=== PATIENT | female | born 1955 | race Caucasian/White ===

== ENCOUNTER 2019-06-27 19:57 | Inpatient (IN) | payer OTHER, MEDICARE, SELFPAY ==
[2019-06-27] VITALS (11 sets, daily range): BP systolic 105–160; BP diastolic 70–109; PULSE 58–79; RESP 8–18; TEMP 36.1–36.7; O2SAT 99–100; BMI 29.9; BMI 30.5; BMI 30.6
--- NOTE | 2019-06-27 20:05 | ED.RN ---
RN CALLED FOR EKG, PULLED OLD EKGS FOR
[2019-06-27] MEDS: Aspirin 81 MG TAB.CHEW 324 MG PO (20:07)
--- NOTE | 2019-06-27 20:09 | EKG12_ITS ---
Test Reason : CP Blood Pressure : / mmHG Vent. Rate : 062 BPM Atrial Rate : 062 BPM P-R Int : 160 ms QRS Dur : 090 ms QT Int : 406 ms P-R-T Axes : 017 -14 075 degrees QTc Int : 412 ms Normal sinus rhythm ST elevation consider inferior injury or acute infarct ACUTE IN / STEMI Consider right ventricular involvement in acute inferior infarct Abnormal ECG Confirmed by JAZLYN HOYT, DIANNA ([id number]), research editor LUIZ POSADAS ([id number]) on 06/29/2019 2:16:07 PM Referred By: Erasto Vuong Confirmed By:DIANNA HOBSON MD
--- NOTE | 2019-06-27 20:09 | RAD_ITS ---
STUDY: X-RAY CHEST REASON FOR EXAM: Female, 63 years old. Chest pain, STEMI TECHNIQUE: Portable chest. COMPARISON: None. FINDINGS: The lungs are clear and expanded. There is no demonstrated pleural abnormality. Normal size heart. Normal mediastinum and mary carmen. Normal visualized pulmonary arteries. Normal visualized aortic arch and descending thoracic aorta. Mild thoracic dextroscoliosis. Soft tissues and bony structures are otherwise unremarkable. RAD/Chest 1 View (Portable) IMPRESSION: No acute findings. Electronically Signed: Lynda Hugo MD at 20:41 EST Tel , Service support ,
[2019-06-27] MEDS: Heparin Injection (Vial) 5,000 UNIT/ML VIAL 4000 UNIT IV (20:14)
--- NOTE | 2019-06-27 20:16 | ED.VISSUMM ---
- ER Visit Summary Date of Service: 06/27/19 Chief Complaint: Pain History of Present Illness: The patient is a 63 F with chest pain that started about 45 minutes prior to arrival. It was midsternal and radiated down both arms. She never had this before. This came on while she was driving. She said she has been having increasing GERD recently, but no other associated symptoms. No history of coronary disease. She denies any medical history but does not see a doctor regularly. Non-smoker. Physical Examination: Afebrile and vital signs unremarkable. Patient appears uncomfortable but not toxic or in distress. Alert and oriented. Heart regular. Lungs clear. Skin unremarkable. Pulses strong and equal. Test Results: EKG shows elevation in inferior leads. This has changed since 2014. Other testing is pending. Emergency Department Course and Treatment: EKG showed ST elevation AR. Team was activated. Patient was discussed with Dr. Vuong. Treated with aspirin, Brilinta, heparin. No nitroglycerin. She received a fluid bolus. Second IV was ordered. Testing is pending. Patient was consented for cardiac catheterization. Hospitalist was contacted to help with further care. Treatment Plan: As above Disposition: To Mold Tooling Technician and then ICU Impression: 1. Acute ST elevation AR, inferior leads This note was generated with [employer] dictation software. It may contain incorrect words, spelling, and punctuation that were not noted in review of the chart prior to signing ED Disposition - Plan for ED Patient: Referrals: Aftab Hillman MD [Primary Care Provider] -
[2019-06-27 20:17] LABS: Absolute Lymphocyte Count 5.32 X10^3/uL (0.83-4.51); Absolute Neutrophil Count 5.9 X10^3/uL (2.0-7.7); Basophil# 0.11 X10^3/uL; Basophil% 0.9 % (0-1); Eosinophils% 1.6 % (0-5); Hematocrit 42.9 % (37-47); Hemoglobin 13.7 g/dL (12.0-15.0); Lymphocyte # 5.32 X10^3/ul (4.0); Lymphocyte % 41.6 % (19-41); Mean Corp Hgb Conc 31.9 g/dL (32-36); Mean Corpuscular Hgb 26.8 pg (27.0-32.0); Mean Corpuscular Volume 83.8 fL (81-99); Mean Platelet Vol. 9.4 fl (6.2-12.0); Monocyte# 1.18 X10^3/uL; Monocyte% 9.2 % (0-10); NRBC Flagged by Analyzer 0 % (0-5); Neutrophil # 5.94 X10^3/uL (2.7-7.7); Neutrophil % 46.5 % (47-70); POSITIVE DIFFERENTIAL YES; Platelet Count 356 K/mm3 (150-450); RBC Distribution Width CV 14.1 % (11.6-14.6); RBC Distribution Width SD 43.3 fl (35.1-43.9); Red Blood Count 5.12 M/mm3 (4.2-5.4); White Blood Count 12.8 K/mm3 (4.4-11.0)
[2019-06-27] MEDS: TICAGRELOR 90 MG TABLET 180 MG PO (20:17)
[2019-06-27] MEDS: Morphine 4 MG/ML Syringe IV ×2 (20:18→22:40)
[2019-06-27] MEDS: Ondansetron 4 MG/2 ML Vial IV (20:18)
[2019-06-27] MEDS: 0.9% Normal Saline 1,000 ML 999 ML IV (20:23)
[2019-06-27 20:24] LABS: International Normalized Ratio 0.9; Prothrombin Time (Protime)PT. 12.4 SECONDS (11.7-14.9)
[2019-06-27 20:25] LABS: Differential Indicated SCAN CRITERIA MET; Partial Thromboplast Time 22.9 Seconds (24.1-36.2)
[2019-06-27 20:34] LABS: Anion Gap 7 (5-15); BUN 17 mg/dL (7-18); BUN/Creat Ratio 16.5 RATIO (10-20); Calcium,Total 9.1 mg/dL (8.5-10.1); Chloride 107 mmol/L (98-107); Creatinine, Serum 1.03 mg/dL (0.55-1.02); EST Glomerular Filtration Rate 57 mL/min (>60); Est Glom Filt Rate - Afr Amer 69 mL/min (>60); Estimated Creatinine Clearance 50.98 ml/min; Glucose 111 mg/dL (74-106); Potassium 3.4 mmol/L (3.5-5.1); Sodium Level 140 mmol/L (136-145)
--- NOTE | 2019-06-27 20:39 | HP.PCM_ITS ---
Problem List (1) STEMI (ST elevation myocardial infarction) Status: Acute History of Present Illness Date of Admission: 06/27/19 Chief Complaint: CHEST PAIN The patient is a 63 year old F who previously had a female who presented with substernal excruciating sudden onset sharp progressively worsening chest pain. The pain started when patient was driving. The pain started about 45 minutes prior to presentation. She denies any ameliorating or aggravating factors. The pain radiates to her bilateral arms. She denies any shortness of breath or diaphoresis. EKG at the emergency department showed inferior leads ST elevation NC. Emergent department doctor discussed the case with cardiology and patient received full dose aspirin; Brilinta; heparin bolus and IV fluid bolus. Past Medical History Medical History: Medical History (This Medical Record has been edited. Action required.) Denies any previous medical history Allergies No Known Allergies Allergy (Verified 06/27/19 19:58) Home Medications: Ambulatory Orders Medication Instructions Recorded NK 06/27/19 Surgical History: cholecystectomy Lives: With Family Smoking Status: Never smoker Alcohol: Occasional - *Family History Maternal History Items: Hypertension Paternal History Items: Hypertension Review of Systems Constitutional: Denies: Chills, Fever, Weight Change HEENT: Denies: Head Aches, Sinus Congestion, Sinus Drainage Cardiovascular: Reports: Chest Pain. Denies: Palpitations Respiratory: Denies: Cough, Shortness of breath at rest, Sputum production Gastrointestinal: Denies: Abdominal Pain, Nausea, Vomiting Genitourinary: Denies: Dysuria Musculoskeletal: Reports: Arm Pain. Denies: Joint Pain, Joint Tenderness Skin: Denies: Rash, Wounds Neurological: Denies: Numbness, Tingling, Focal weakness Psychiatric: Reports: Anxiety. Denies: Depression, Homicidal Ideations, Suicidal Ideations Hematologic/ Lymphatic: Denies: Easy Bruising, Easy Bleeding VTE Information - Inpt Only VTE Present on Admission: No VTE Mechan Device Prophylaxis: None VTE Pharm Prophylaxis ordered?: No Reason prophylaxis not ordered:: Treatment Not Indicated - Not indicated since patient has been given therapeutic dose of heparin for ST elevation NC Patient Problems: Active and Suspected Problems (This Medical Record has been edited. Action required.) STEMI (ST elevation myocardial infarction) (Acute) - Physical Exam Vitals/I&O's: Vital Signs Temp Pulse Resp BP Pulse Ox 98.0 F 58 L 17 105/70 100 06/27/19 20:04 06/27/19 20:22 06/27/19 20:22 06/27/19 20:22 06/27/19 20:22 Oxygen Flow Rate (L/min) 2 Oxygen Delivery Method Nasal Cannula Weight: 84 kg Body Mass Index (BMI) 29.9 General: Alert, Oriented x3, Cooperative, - - Patient with excruciating chest pain HEENT: Atraumatic, Normocephalic Neck: Supple, Trachea Midline Lungs: Clear to auscultation, Normal air movement, No rhonchi, No wheeze, No rales Cardiovascular: Regular rate, Normal S1, Normal S2, No murmurs, Bradycardic Abdomen: Bowel Sounds Present, Soft, Non Tender Extremities: No edema, Capillary Refill Less than 3 Seconds Skin: No rashes, No breakdown Musculoskeletal: No Tenderness to Palpation of Joints or Extremities Neurological: Cranial nerves II-XII grossly intact Psych/Mental Status: Normal Affect, Appropriate Laboratory Results 06/27/19 20:10: WBC 12.8 H, RBC 5.12, Hgb 13.7, Hct 42.9, MCV 83.8, MCH 26.8 L, MCHC 31.9 L, RDW Std Deviation 43.3, RDW Coeff of Asiya 14.1, Plt Count 356, MPV 9.4, Immature Gran % (Auto) 0.200, Neut % (Auto) 46.5 L, Lymph % (Auto) 41.6 H, [place] % (Auto) 9.2, Eos % (Auto) 1.6, Baso % (Auto) 0.9, Absolute Neuts (auto) 5.9, Absolute Lymphs (auto) 5.32 H, Nucleated RBC % 0 06/27/19 20:10: PT 12.4, INR 0.9, APTT 22.9 L 06/27/19 20:10: Sodium 140, Potassium 3.4 L, Chloride 107, Carbon Dioxide 26.0, Anion Gap 7, BUN 17, Creatinine 1.03 H, Estim Creat Clear Calc 50.98, Est GFR (MDRD) Af Amer 69, Est GFR (MDRD) Non-Af 57 L, BUN/Creatinine Ratio 16.5, Glucose 111 H, Calcium 9.1, Troponin I < 0.015 Current Medications Sodium Chloride () 1,000 mls @ 999 mls/hr IV .Q1H1M [facility] Last Admin: 06/27/19 20:23 Dose: 999 mls/hr Documented by: Assessment/Plan All Active Problems (This Medical Record has been edited. Action required.) STEMI (ST elevation myocardial infarction) (Acute) The patient is a 63 year old F who previously had a female who presented with substernal excruciating sharp progressively worsening chest pain and found to have new onset ST elevation NC in inferior leads. ST elevation NC EKG showed ST elevation in inferior leads which is new compared to EKG in 2015. Emergent department doctor discussed the case with cardiology and patient was given full dose aspirin Brilinta; heparin bolus and IV fluids. Nitroglycerin was not given because it was inferior wall NC.. Patient received further heparin bolus at the cardiac lab. Patient was taken to the Marketing Instructor where because of persistent pain she received fentanyl. Will follow further recommendations after patient returns from Marketing Instructor. DVT prophylaxis Not indicated at this time since patient has received therapeutic dose of heparin for her ST elevation NC. Code Visit Inpatient E&M: 28981 Init Hosp L3
[2019-06-27 20:44] LABS: Differential Comment SCANNED
--- NOTE | 2019-06-27 21:37 | NURSING ---
telephone report received from [facility] Internal Control Specialist RN. Pt stable post cath and will be up to ICU shortly.
--- NOTE | 2019-06-27 21:49 | CL.I_ITS ---
Patient Name: LOUISE STEPHENSON Study Date: 06/27/2019 Performing: Erasto Vuong MD Ht: 66 inches 168 cm : 1955 Wt: 185.4 lbs 84 kg Age: 63 Gender: female BSA: 1.94 PROCEDURE(S) PERFORMED XU28-CSM/COR/LV VH19-IWO, HARSHA AND/OR PTCA, ARTERY OR GRAFT, SINGLE VESSEL CLINICAL PROFILE AND CO-MORBIDITIES Patient presents with STEMI for emergent cardiac cath. Indications: ACS <= 24 hrs, Worsening Angina, New Onset Angina <= 2 months, Suspected CAD Heart Failure: None Stress/Imaging Stress/Image Study Performed: No Angina Classification Anginal Classification w/in 2 Weeks: CCS II CAD Presentations: STEMI. Symptom onset Date/Time: 06/27/2019 19:15:00 Time Estimated Comorbidities/Risk Factors: Hypertension CONCLUSIONS Segmented LV systolic dysfunction- Mild LVEF: by LV gram 50-55 % Elevated Left Ventricular End Diastolic Pressure Single vessel CAD of the distal OM#1 (very small, tortuous vessel) Successful PTCA/HARSHA distal OM#1 with as 2.25 x 12 Promus Synergy, 100%-->0%, no dissection. Unfortun ate plaque shift down tiny inferior branch of OM#1, no additional PCI attempted of this branch. No additional stress test or PCI required of other vessels. RECOMMENDATIONS Referred for immediate PCI Highly recommend quitting all tobacco products Follow up with primary asphalt paving foreman Risk factor modification ASA Indefinitley Plavix for at least 12 months Routine post interventional care Refer for Outpatient Cardiac Rehab Manual sheath removal per protocol Follow up with Dr. Vuong Successful Mynx Control closure of RFA. DESCRIPTION OF PROCEDURE The patient arrived to the procedure lab. The risks and benefits of the procedure as well as a full d escription of our services here and lack of surgical backup were fully explained to the patient and/o r their significant other prior to the catheterization. The Timeout was completed, verifying the lisandra ect patient and procedure. The patient's procedural site was prepped and draped in the usual fashion. Local anesthetic was given subcutaneously to right groin region with Lidocaine 2%. Using a modified Seldinger technique, arterial access was obtained via the right femoral artery, a 6Fr sheath was inse rted.. Left Coronary Artery selective angiography was performed in multiple views using a 4 Fr. JL5 catheter. Right Coronary Artery selective angiography was then performed in multiple views using a 4 Fr. 3DRC catheter. Left Ventriculography was performed in WALLIS projection using a 4 Fr. Pigtail cathet er. LV to AO pullback pressures were then recorded EBU 3.5 Guide catheter was inserted and engaged into the LCA. runthrough Guide wire was advanced to the 1st OM. Emerge 2.00x8 Balloon catheter was inserted. PTCA balloon inflated at 6 atms for 6 sec s. Angiogram performed post balloon dilatation. Emerge 2.00x8 Balloon catheter was inserted. PTCA bal loon inflated at 4 atms for 4 secs. Angiogram performed post balloon dilatation. Synergy 2.25x12 Drug Eluting stent was inserted. Angiogram performed post stent deployment. Contrast was injected through the sheath and the Right Iliac and Femoral artery were assessed for possible closure device. The ar terial sheath was pulled and a Mynx closure device was deployed for hemostasis CORONARY ANGIOGRAPHY DOMINANCE: Right Dominant LEFT HEART ASSESSMENT Left Ventricular Ejection Fraction: by LV Gram 50-55 % Depressed Left Ventricular systolic function LVEDP: 20 mmHg Elevated Left Ventricular End Diastolic Pressure Inferior Lateral Hypokinesis - Mild LEFT MAIN: Angiographically normal LEFT ANTERIOR DESCENDING ARTERY: Angiographically normal CIRCUMFLEX ARTERY: Angiographically normal OM 1: Distal - is occluded RIGHT CORONARY ARTERY: Angiographically normal INTERVENTION INFORMATION LESION SITE: 1st OM (Distal) Lesion Complexity: High/C, lesion at bifurcation: No, thrombus present: Yes, lesion length: 12 mm, cu lprit lesion: Yes Pre Stenosis: 100 % Pre intervention ALEXX flow: 0 PROCEDURE: Drug Eluting Stent with pre dilatation. Post Stenosis: 0 % Post intervention ALEXX flow: 3 Lesion Devices: Terumo .014 Runthrough Extra Floppy 180cm straight Valcontronic 6 Fr EBU3.5 100cm Guide Catheter Santana Sci EMERGE MR 2.00x08 BALLOON Santana Sci Synergy MR HARSHA 2.25x12 COMPLICATIONS No Complications PROCEDURE MEDICATIONS Fentanyl 25 mcg IV Oxygen: 2 L/min via nasal cannula Heparin 6000 unit(s) IV 06/27/2019 20:45:43 Nitro 200 mcg IC 06/27/2019 21:01:36 Potassium Chloride 10 mEq in 100cc NS 06/27/2019 21:13:24 IV Bolus: .9 NaCl 1500 ml total 06/27/2019 21:29:59 SUMMARY OF HEMODYNAMIC DATA Time AIR REST ECG 20:33:17 AO 162/76 (110) SA 20:46:50 LV 144/-6, 17 21:19:46 LV 135/-6, 20 21:19:52 LVp 131/-7, 20 21:19:57 AOp 134/68 (98) 21:20:03 Signed By Erasto Vuong MD On 06/27/2019 21:48:58 Erasto Vuong MD
--- NOTE | 2019-06-27 22:00 | EKG12_ITS ---
Test Reason : Blood Pressure : / mmHG Vent. Rate : 075 BPM Atrial Rate : 075 BPM P-R Int : 160 ms QRS Dur : 086 ms QT Int : 376 ms P-R-T Axes : 055 -15 007 degrees QTc Int : 419 ms Normal sinus rhythm Inferior infarct , age undetermined Abnormal ECG When compared with ECG of 27-JUN-2019 22:01, MANUAL COMPARISON REQUIRED, DATA IS UNCONFIRMED Confirmed by MATA HOYT, MERCEDES ([id number]), development editor OSMAN PRIEST ([id number]) on 07/03/2019 9:14:37 AM Referred By: Erasto Vuong Confirmed By:MERCEDES AUGUST MD
--- NOTE | 2019-06-27 22:00 | ECHOD_ITS ---
Reason For Study: S/P MAGALI Procedure This was a 2D Doppler, Color Flow transthoracic echocardiogram. Exam performed portable in ICU/CCU. Left Ventricle Normal size and thickness. The estimated ejection fraction is 50-55 %. Stage 1 diastolic dysfunction. Mid-Lateral : Mildly hypokinetic. Mid-Posterior: Mildly hypokinetic. Right Ventricle Normal size and thickness. Normal systolic function. Atria Normal left atrium. Normal right atrium. Normal atrial septum. Mitral Valve The mitral valve is structurally normal. No prolapse or stenosis seen. Mild (1+) mitral valve insufficiency. Tricuspid Valve Normal tricuspid valve. Trivial tricuspid valve insufficiency. Right ventricular systolic pressure estimated to be 35 mmHg. Aortic Valve Normal aortic valve. Trisinus/trileaflet aortic valve. Pulmonic Valve Normal pulmonic valve. Great Vessels Normal aortic root. Normal arch. Normal inferior vena cava. Inferior vena cava collapse with sniff. Pericardium/Pleural No pericardial effusion. MMode/2D Measurements & Calculations LVIDd: 4.7 cm IVSd: 1.1 cm Ao root diam: 3.4 cm LVIDs: 2.6 cm LVPWd: 1.1 cm LA dimension: 3.8 cm RVDd: 3.2 cm FS: 43.7 % LAV(MOD-bp): 50.7 ml LA A4 area: 15.6 cm2 RA A4 area: 12.6 cm2 LAV(MOD-bp) Indexed: 25.9 ml/m2 LAV(MOD-sp2): 52.8 ml LAV(MOD-sp4): 40.5 ml Time Measurements MV dec time: 0.21 sec Doppler Measurements & Calculations MV E max miranda: 89.5 cm/sec MV V2 max: 139.6 cm/sec MV P1/2t max miranda: 111.7 cm/sec MV A max miranda: 141.8 cm/sec MV max P.8 mmHg MV P1/2t: 59.5 msec MV E/A: 0.63 MV V2 mean: 77.4 cm/sec MV dec slope: 549.9 cm/sec2 MV mean P.8 mmHg MVA(P1/2t): 3.7 cm2 MV V2 VTI: 25.3 cm Ao V2 max: 143.4 cm/sec LV V1 max: 113.4 cm/sec MR max miranda: 494.4 cm/sec Ao max P.2 mmHg LV V1 max P.1 mmHg MR max P.8 mmHg Ao V2 mean: 84.9 cm/sec LV V1 mean P.5 mmHg MR mean miranda: 415.8 cm/sec Ao mean P.5 mmHg LV V1 mean: 73.3 cm/sec MR mean P.9 mmHg Ao V2 VTI: 28.3 cm LV V1 VTI: 25.0 cm MR VTI: 187.8 cm PA V2 max: 104.0 cm/sec TR max miranda: 272.9 cm/sec TR max P.8 mmHg Interpretation Summary The estimated ejection fraction is 50-55 %. Stage 1 diastolic dysfunction. Mid-Lateral : Mildly hypokinetic Mid-Posterior: Mildly hypokinetic Mild (1+) mitral valve insufficiency. Trivial tricuspid valve insufficiency. Right ventricular systolic pressure estimated to be 35 mmHg. There is no comparison study available. Ordering Physician: Erasto Vuong Referring Physician: Aldo Hillman MD Performed By: Nghia Aleman RCS
[2019-06-27 22:05] LABS: ACT Activated Clotting Time 202 sec (74-137)
[2019-06-27 22:05] LABS: ACT Activated Clotting Time 164 sec (74-137)
[2019-06-27 22:26] LABS: Cholesterol 212 mg/dL (200); High Density Lipoprotein 61 mg/dL; Triglycerides 118 mg/dL; Very Low Density Lipoprotein 24 mg/dL (5-40)
[2019-06-27] MEDS: Potassium Chloride 10mEq/100mL 10 MEQ/100 ML IV.SOLN. 100 MEQ IV BOLUS ×2 (22:36→23:37)
[2019-06-27] MEDS: 0.9% Normal Saline 1,000 ML 150 ML IV (22:38)
[2019-06-27] MEDS: 0.9% Saline Lock 10 ML Syringe IV (22:41)
[2019-06-27] MEDS: Atorvastatin Calcium 80 MG Tablet PO (22:46)
[2019-06-27] MEDS: TICAGRELOR 90 MG TABLET PO (22:46)
[2019-06-27] MEDS: Metoprolol Tartrate 25 MG Tablet 12.5 MG PO (22:47)
[2019-06-27] MEDS: diazePAM 5 MG Tablet PO (23:16)
[2019-06-28] VITALS (31 sets, daily range): BP systolic 121–160; BP diastolic 50–97; PULSE 65–98; RESP 12–20; TEMP 36.3–36.9; O2SAT 91–100; BMI 29.8
[2019-06-28] MEDS: Potassium Chloride 10mEq/100mL 10 MEQ/100 ML IV.SOLN. 100 MEQ IV BOLUS ×2 (00:34→01:39)
[2019-06-28 04:28] LABS: Absolute Lymphocyte Count 1.29 X10^3/uL (0.83-4.51); Absolute Neutrophil Count 10.4 X10^3/uL (2.0-7.7); Basophil# 0.03 X10^3/uL; Basophil% 0.2 % (0-1); Hematocrit 39.7 % (37-47); Hemoglobin 12.4 g/dL (12.0-15.0); Lymphocyte # 1.29 X10^3/ul (4.0); Lymphocyte % 10.5 % (19-41); Mean Corp Hgb Conc 31.2 g/dL (32-36); Mean Corpuscular Hgb 26.3 pg (27.0-32.0); Mean Corpuscular Volume 84.3 fL (81-99); Mean Platelet Vol. 9.4 fl (6.2-12.0); Monocyte# 0.56 X10^3/uL; Monocyte% 4.6 % (0-10); NRBC Flagged by Analyzer 0 % (0-5); Neutrophil # 10.35 X10^3/uL (2.7-7.7); Neutrophil % 84.4 % (47-70); Platelet Count 297 K/mm3 (150-450); RBC Distribution Width CV 14.5 % (11.6-14.6); RBC Distribution Width SD 44.4 fl (35.1-43.9); Red Blood Count 4.71 M/mm3 (4.2-5.4); White Blood Count 12.3 K/mm3 (4.4-11.0)
[2019-06-28 04:44] LABS: AST(SGOT) 80 U/L (15-37); Alanine Aminotransfer ALT/SGPT 55 U/L (13-56); Albumin, Serum 3.2 g/dL (3.2-5.0); Alkaline Phosphatase 98 U/L (45-117); Anion Gap 5 (5-15); BUN 11 mg/dL (7-18); BUN/Creat Ratio 14.6 RATIO (10-20); Calcium,Total 7.5 mg/dL (8.5-10.1); Chloride 107 mmol/L (98-107); Creatinine, Serum 0.76 mg/dL (0.55-1.02); EST Glomerular Filtration Rate 81 mL/min (>60); Est Glom Filt Rate - Afr Amer 99 mL/min (>60); Estimated Creatinine Clearance 69.09 ml/min; Globulin 3.2 g/dL (2.2-4.2); Glucose 124 mg/dL (74-106); Potassium 4.7 mmol/L (3.5-5.1); Protein, Total 6.4 g/dL (6.4-8.2); Sodium Level 139 mmol/L (136-145)
--- NOTE | 2019-06-28 07:26 | PN_ITS ---
Patient Problems: Active and Suspected Problems (This Medical Record has been edited. Action required.) STEMI (ST elevation myocardial infarction) (Acute) Reason for Visit: Inferior wall STEMI Objective: Patient is still feels mild chest pressure but is much better. Denies shortness of breath. On director of cardiac rehabilitation, 3-4 beats of PVCs otherwise normal sinus rhythm. ST elevation of lead II is reversed. First EKG on 06/27/[address] elevation in inferior leads II 3, aVF and V4 to V6. ST segment depression in V1, V2. Slight ST depression in lead V1 and aVL. The EKG changes have reversed her last EKG done at 510 on June 28. Vitals/I&O's: Vital Signs Temp Pulse Resp BP Pulse Ox 98 F 66 18 152/76 H 100 06/28/19 04:00 06/28/19 06:00 06/28/19 06:00 06/28/19 06:00 06/28/19 06:00 Oxygen Flow Rate (L/min) 2 Oxygen Delivery Method Nasal Cannula Weight: 190 lb 7.67 oz Body Mass Index (BMI) 30.5 Intake and Output for Last 24 Hours 06/26/19 06/27/19 06/28/19 23:59 23:59 23:59 Intake Total 100 / 130 1330 / 1330 Output Total 500 / 500 Balance 100 / 130 830 / 830 General: Alert, Oriented x3, Cooperative HEENT: Atraumatic, PERRLA, EOMI, Normocephalic Neck: Supple, No JVD, Negative Carotid Bruits Lungs: Clear to auscultation, Normal air movement Cardiovascular: Regular rate, Regular Rhythm, Normal S1, Normal S2, No murmurs Abdomen: Bowel Sounds Present, Soft, Non Tender, Non-Distended Extremities: No edema, Capillary Refill Less than 3 Seconds Skin: No rashes, No breakdown Musculoskeletal: No Tenderness to Palpation of Joints or Extremities Neurological: Cranial nerves II-XII grossly intact, Deep Tendon Reflexes 2+/4 and Symmetrical, Neuro grossly intact, Motor Exam 5/5 strength throughout Psych/Mental Status: Normal Affect, Appropriate Laboratory Results 06/27/19 20:10: WBC 12.8 H, RBC 5.12, Hgb 13.7, Hct 42.9, MCV 83.8, MCH 26.8 L, MCHC 31.9 L, RDW Std Deviation 43.3, RDW Coeff of Asiya 14.1, Plt Count 356, MPV 9.4, Immature Gran % (Auto) 0.200, Neut % (Auto) 46.5 L, Lymph % (Auto) 41.6 H, [place] % (Auto) 9.2, Eos % (Auto) 1.6, Baso % (Auto) 0.9, Absolute Neuts (auto) 5.9, Absolute Lymphs (auto) 5.32 H, Nucleated RBC % 0, Differential Comment SCANNED 06/27/19 20:10: PT 12.4, INR 0.9, APTT 22.9 L 06/27/19 20:10: Sodium 140, Potassium 3.4 L, Chloride 107, Carbon Dioxide 26.0, Anion Gap 7, BUN 17, Creatinine 1.03 H, Estim Creat Clear Calc 50.98, Est GFR (MDRD) Af Amer 69, Est GFR (MDRD) Non-Af 57 L, BUN/Creatinine Ratio 16.5, Gl ucose 111 H, Calcium 9.1, Troponin I < 0.015 06/27/19 20:10: Triglycerides 118, Cholesterol 212 H, LDL Cholesterol 127, VLDL Cholesterol 24, HDL Cholesterol 61 06/27/19 20:41: Activated Clotting Time 164 H 06/27/19 21:20: Activated Clotting Time 202 H 06/27/19 23:10: Troponin I 0.741 H* 06/28/19 02:10: Troponin I 5.450 H* 06/28/19 04:15: Sodium 139, Potassium 4.7, Chloride 107, Carbon Dioxide 27.0, Anion Gap 5, BUN 11, Creatinine 0.76, Estim Creat Clear Calc 69.09, Est GFR (MDRD) Af Amer 99, Est GFR (MDRD) Non-Af 81, BUN/Creatinine Ratio 14.6, Glucose 124 H, Calcium 7.5 L, Total Bilirubin 0.50, AST 80 H, ALT 55, Alkaline Phosphata se 98, Total Protein 6.4, Albumin 3.2, Globulin 3.2, Albumin/Globulin Ratio 1.0 06/28/19 04:15: WBC 12.3 H, RBC 4.71, Hgb 12.4, Hct 39.7, MCV 84.3, MCH 26.3 L, MCHC 31.2 L, RDW Std Deviation 44.4 H, RDW Coeff of Asiya 14.5, Plt Count 297, MPV 9.4, Immature Gran % (Auto) 0.300, Neut % (Auto) 84.4 H, Lymph % (Auto) 10.5 L, [place] % (Auto) 4.6, Eos % (Auto) 0.0, Baso % (Auto) 0.2, Absolute Neuts (auto) 10.4 H, Absolute Lymphs (auto) 1.29, Nucleated RBC % 0 Current Medications Acetaminophen (Tylenol) 650 mg PO Q6H PRN PRN PRN Reason: Pain Score 1-3/10 Aspirin (Ecotrin) 81 mg PO DAILY@0800 [facility] Atorvastatin Calcium (Lipitor) 80 mg PO QHS [facility] Last Admin: 06/27/19 22:46 Dose: 80 mg Documented by: Atropine Sulfate () 0.5 mg IV UD PRN PRN Reason: HR <50 bpm Diazepam (Valium) 5 mg PO Q6H PRN PRN PRN Reason: BACK SPASMS/ANXIETY Last Admin: 06/27/19 23:16 Dose: 5 mg Documented by: Glucagon () 1 mg IM .X1 PRN PRN Reason: Hypoglycemia Heparin Sodium (Beef Lung) (Heparin 500 Unit/5 Ml (100/Ml)) 500 unit IV UD PRN PRN Reason: HEPARIN FLUSH Dextrose (Dextrose 10%-Water) 250 mls @ 999 mls/hr IV .Q16M PRN; Protocol PRN Reason: HYPOGLYCEMIA Labetalol HCl (Trandate) 5 mg IV X1 PRN PRN Reason: SBP > 160 when pulling sheath Lisinopril (Zestril) 5 mg PO DAILY [facility] Metoprolol Tartrate (Lopressor (Beta Sarika)) 12.5 mg PO BID [facility] Last Admin: 06/27/19 22:47 Dose: 12.5 mg Documented by: Morphine Sulfate () 2 - 4 mg IV Q4H PRN PRN PRN Reason: Pain Score 1-10/10 Last Admin: 06/27/19 22:40 Dose: 4 mg Documented by: Nitroglycerin (Nitrostat) 0.4 mg SUBLINGUAL Q5M PRN PRN Reason: CARDIAC/CHEST PAIN Sodium Chloride () 500 ml IV BOLUS PRN PRN Reason: VASO-VAGAL PROTOCOL Sodium Chloride () 10 - 40 ml IV UD PRN PRN Reason: SALINE FLUSH Last Admin: 06/27/19 22:41 Dose: 10 ml Documented by: Ticagrelor (Brilinta) 90 mg PO BID [facility] Last Admin: 06/27/19 22:46 Dose: 90 mg Documented by: STROKE Vital Signs/Narrative: Vital Signs Temp Pulse Resp BP Pulse Ox 06/28/19 06:00 66 18 152/76 H 100 06/28/19 05:00 67 19 H 152/77 H 99 06/28/19 04:00 98 F 66 17 142/73 H 100 Medical Necessity - Tobacco Use Smoking Status: Never smoker Assessment/Plan All Active Problems (This Medical Record has been edited. Action required.) STEMI (ST elevation myocardial infarction) (Acute) The patient is a 63 year old F who previously had a female who presented with substernal excruciating sharp progressively worsening chest pain and found to have new onset ST elevation MO in inferior leads. ST elevation MO, inferior wall EKG showed ST elevation in inferior leads which is new compared to EKG in 2015. The patient patient was given full dose aspirin Brilinta; heparin bolus and IV fluids. Nitroglycerin was not given because it was inferior wall MO. Patient had emergent PCI done. Reported EF 50 to 55% with mild segmental LV systolic dysfunction. Single-vessel coronary lesion distal OM1 with successful PCI of distal OM1. The patient was seen by hotel casino floorperson. DVT prophylaxis Not indicated at this time since patient has received therapeutic dose of heparin for her ST elevation MO. Lovenox 40 mg subcu daily after 24 hours of removal of sheath. Code Visit Inpatient E&M: 64265 [facility] L3
--- NOTE | 2019-06-28 07:53 | CRPHASE1_ITS ---
Patient Communication PHII Cardiac Rehab Discussed with Patient:: Yes Guide to Cardiac Rehab Given to Patient:: Yes Cardiac Rehab Facility Choice List Given to Patient:: Yes Choice Program [facility] CR PHII:: Communication Given to CR, Refer to [facility] Risk Factors/Lifestyle Smoking Status: Never smoker Hx Hypertension: No Hx Diabetes Mellitus Type 1: No Hx Diabetes Mellitus Type 2: No Hx Dyslipidemia: No Height: 5 ft 6 in Weight:: 185 lb BMI: 29.8 Stress: Recent, Home/Family Caffeine: Yes Substance Abuse: No Laboratory Values: Cardiac Rehab Phase I Labs Triglycerides 118 mg/dL (-199) 06/27/19 20:10 Cholesterol 212 mg/dL (200) H 06/27/19 20:10 LDL Cholesterol 127 mg/dL (0-130) 06/27/19 20:10 HDL Cholesterol 61 mg/dL (40-) 06/27/19 20:10 Hospital Course Pain Description: Sharp - sharp CP that radiated to both arms Medical/Surgical History SD:: Yes Angina:: Yes CAD:: Yes Pulmonary:: No COPD:: No Asthma:: No Diabetes:: No Hypertension:: No Arrhythmias:: No PE:: No DVT:: No PVD:: No PAD:: No GERD:: Yes - pt states she had had indigestion lately Cancer:: No Renal:: No Thyroid:: No Depression:: No Anxiety:: No CABG: No PTCA:: Yes ICD:: No Pacemaker:: No Orthopedic:: No Discharge/Home/Social Eval Discharge Disposition: Home Marital Status: Cardiac Rehabilitation Info Cardiac Rehabilitation Program Information: Cardiac Rehabilitation is important for patients like you who are recovering from a heart problem. Cardiac rehabilitation programs are recognized as integral to the continued care of the patient with coronary heart disease. The cardiac rehabilitation program is designed to optimize a patient's physical, psychological, and social functioning. Health healthcare science specialist work in cardiac rehabilitation programs and assist you with getting the treatments you need to get stronger and healthier - like exercise, healthy eating habits, and medications. Cardiac rehabilitation has been show to help people with heart problems live longer and have better life enjoyment than people who do not go to cardiac rehabilitation. Please contact the Cardiac Rehabilitation Program at [facility] at in two weeks if you have not heard from them.
--- NOTE | 2019-06-28 07:58 | CRPH1.INSTRU ---
General Education CAD and cardiac anatomy and function:: Not instructed Explanation of diagnoses and procedures:: Not instructed Sign/Symptoms of NC:: Patient communicates acknowledgment, Needs reinforcement Antiplatelet therapy: Not instructed Proper use of NTG-SL: Not instructed Emergency procedures and activation of EMS: Not instructed Compliance of all prescribed medications: Not instructed Smoking Patient Nicotine/Smoking Risk Factors Are:: Never smoked Dyslipidemia Patient Dyslipidemia Risk Factors Are:: Total Cholesterol - 212, Triglycerides - 118, HDL - 61, LDL - 127 Dyslipidemia Response Code:: Not instructed Overweight/Obesity Patient Overweight/Obesity Risk Factors Are:: BMI Normal [24-29 & > 65 years old] Overweight/Obesity:: Not instructed Hypertension Patient Hypertension Risk Factors Are:: No documented hx of HTN Heart Disease Heart Disease Response Code:: Not instructed Diabetes Patient Diabetes Risk Factors Are:: No documented hx of diabetes Metabolic Syndrome Metabolic Syndrome Response Code:: Not instructed Sedentary Sedentary Response Code:: Not instructed Stress Recommendations Include:: Identification of stressors, and assessment of coping skills - pt states has had family stress
[2019-06-28] MEDS: Aspirin E.C. 81 MG Tablet PO ×2 (08:51→14:07)
[2019-06-28] MEDS: TICAGRELOR 90 MG TABLET PO ×3 (08:51→21:28)
[2019-06-28] MEDS: Lisinopril 5 MG Tablet PO (08:52)
[2019-06-28] MEDS: Metoprolol Tartrate 25 MG Tablet 12.5 MG PO ×2 (08:52→21:28)
--- NOTE | 2019-06-28 09:15 | CASEMGMT ---
RN CM Assessment Presentation: STEMI Intro role of CM and purpose of RN CM assessment to patient and family in room.. Demographics, PCP and Pharmacy verified. Discussed homegoing, pt states she is independent, no DME. PCP: Dr. Hillman Specialists: Dr. Vuong. Discussed importance of follow up and adherence to dc instructions. Preferred Pharmacy: [facility] Insurance: [employer] Prescription Benefit: yes. Brilinta savings card given and explained. LNOK: [facility] Living Arrangements: Lives indepedently, no care needs. Transportation: drives or family can drive DME: none HHC/SNF: no history Patient DC goals: Home DC PLAN: Home Darrel GALLO RN ACM
--- NOTE | 2019-06-28 10:00 | EKG12_ITS ---
Test Reason : POST CATH Blood Pressure : / mmHG Vent. Rate : 078 BPM Atrial Rate : 078 BPM P-R Int : 182 ms QRS Dur : 082 ms QT Int : 408 ms P-R-T Axes : 063 -24 093 degrees QTc Int : 465 ms Normal sinus rhythm Inferior infarct acute Lateral injury pattern * ACUTE [place] Consider right ventricular involvement in acute inferior infarct Abnormal ECG Confirmed by MATA HOYT, MERCEDES ([id number]), editor continuity and script OSMAN PRIEST ([id number]) on 07/03/2019 9:16:01 AM Referred By: Erasto Vuong Confirmed By:MERCEDES AUGUST MD
[2019-06-28] MEDS: 0.9% Saline Lock 10 ML Syringe IV ×4 (10:36→21:43)
[2019-06-28] MEDS: Ondansetron 4 MG/2 ML Vial IV ×2 (10:36→18:19)
[2019-06-28] MEDS: Morphine 4 MG/ML Syringe IV ×2 (10:38→18:22)
--- NOTE | 2019-06-28 12:49 | PN.CARD_ITS ---
Subjectve: Patient is chest pain has essentially resolved however the patient in a headache all evening culminating in an episode of nausea and vomiting about 1 after receiving her pills this morning. It was uncertain whether the patient adequately absorbed her aspirin and Brilinta. She also complains of bilateral hand heaviness which is markedly improved since her angioplasty. Echocardiogram done this morning showed relatively intact LV function with very minimal inferior lateral hypokinesis and overall ejection fraction of 50 to 55%. Peak troponin is 5.45 as of this writing. EKG dated 06/28/2019 showed normal sinus rhythm with recent inferior wall myocardial infarction and resolution of ST segment changes. Telemetry showed normal sinus rhythm with a burst of wide- complex irregular tachycardia most likely ventricular tachycardia which was self terminating. Currently normal sinus rhythm. Objective: Vital Signs Temp Pulse Resp BP Pulse Ox 98.4 F 76 20 H 160/82 H 98 06/28/19 12:00 06/28/19 12:00 06/28/19 12:00 06/28/19 12:00 06/28/19 12:00 Oxygen Flow Rate (L/min) 2 Oxygen Delivery Method Room Air Weight: 185 lb 0.014 oz Body Mass Index (BMI) 30.5 Intake and Output for Last 24 Hours 06/26/19 06/27/19 06/28/19 23:59 23:59 23:59 Intake Total 100 / 130 2910 / 2910 Output Total 500 / 500 Balance 100 / 130 2410 / 2410 General: Awake, Alert, Oriented x 3 HEENT: PERRL, EOMI, Sclera Non Icteric Neck: Supple, Good ROM, No Lymph Node Enlargement Lungs: Clear to auscultation Cardiovascular: Regular Rhythm, Normal S1, Normal S2, No Murmurs, No Rubs, No Gallops Vascular: No Carotid Bruits, Normal Femoral Pulses, Normal Radial Pulses, Normal Dorsalis Pedal Pulse, Normal Posterior Tibial Pulses Abdomen: Bowel Sounds Present, Soft, Non Tender, No HSM, No Organomegaly Extremities: No Cyanosis, No Clubbing, No edema Neurological: No Focal Motor or Sensory Deficit 06/27/19 20:10: WBC 12.8 H, RBC 5.12, Hgb 13.7, Hct 42.9, MCV 83.8, MCH 26.8 L, MCHC 31.9 L, Plt Count 356, MPV 9.4, Immature Gran % (Auto) 0.200, Neut % (Auto) 46.5 L, Lymph % (Auto) 41.6 H, Mitchell % (Auto) 9.2, Eos % (Auto) 1.6, Baso % (Aut o) 0.9, Absolute Neuts (auto) 5.9, Nucleated RBC % 0 06/27/19 20:10: PT 12.4, INR 0.9, APTT 22.9 L 06/27/19 20:10: Sodium 140, Potassium 3.4 L, Chloride 107, Carbon Dioxide 26.0, Anion Gap 7, BUN 17, Creatinine 1.03 H, Est GFR (MDRD) Af Amer 69, Est GFR (MDRD) Non-Af 57 L, BUN/Creatinine Ratio 16.5, Glucose 111 H, Calcium 9.1, Troponin I < 0.015 06/27/19 20:10: Triglycerides 118, Cholesterol 212 H, LDL Cholesterol 127, VLDL Cholesterol 24, HDL Cholesterol 61 06/27/19 23:10: Troponin I 0.741 H* 06/28/19 02:10: Troponin I 5.450 H* 06/28/19 04:15: Sodium 139, Potassium 4.7, Chloride 107, Carbon Dioxide 27.0, Anion Gap 5, BUN 11, Creatinine 0.76, Est GFR (MDRD) Af Amer 99, Est GFR (MDRD) Non-Af 81, BUN/Creatinine Ratio 14.6, Glucose 124 H, Calcium 7.5 L, Total Bilirubin 0.50 06/28/19 04:15: WBC 12.3 H, RBC 4.71, Hgb 12.4, Hct 39.7, MCV 84.3, MCH 26.3 L, MCHC 31.2 L, Plt Count 297, MPV 9.4, Immature Gran % (Auto) 0.300, Neut % (Auto) 84.4 H, Lymph % (Auto) 10.5 L, Mitchell % (Auto) 4.6, Eos % (Auto) 0.0, Baso % (Auto) 0.2, Absolute Neuts (auto) 10.4 H, Nucleated RBC % 0 Rhythm: EKG: ECHO: Stress Test: Cardiac Cath: PCI: CT Surgery: Holter monitor: EPS: PPM: CXR: Chest CT Scan: Medical Necessity - Tobacco Use Smoking Status: Never smoker Assessment/Plan 1. Coronary artery disease: The patient presented with acute inferior wall myocardial infarction with occlusion of a very small distal obtuse marginal branch, successfully reopened with balloon angioplasty followed by small 2.25X 16 Promus drug-eluting stent. Patient had reestablished ALEXX-3 flow to the majority of the vessel however there was a small inferior branch which was occluded due to plaque shifting. Her echocardiogram shows very normal inferolateral hypokinesis which will hopefully improve with time. At this point I recommend giving the patient another dose of baby aspirin and Brilinta as it is uncertain whether she absorbed this at the time of her nausea and vomiting this morning. She will continue baby aspirin and Brilinta going forward. If she is unable to tolerate Brilinta we will switch her to Plavix after loading with 300 mg x 1 followed by 75 mg a day. Addition she will continue her metoprolol and lisinopril. 2. Hyperlipidemia: Continue Lipitor. Repeat lipids in 6 weeks time. 3. Patient will continue in the ICU today, and probably be able to go to the floor tomorrow morning. Thank you very much for the opportunity to participate in the cardiac care of your patient. Code Visit Inpatient E&M: 40854 Subs Hosp L2
[2019-06-28] MEDS: Metoclopramide 10 MG/2 ML Vial 5 MG IV ×2 (12:56→21:42)
--- NOTE | 2019-06-28 15:29 | PCM.PN.BLA ---
Progress Note Patient is scheduled for post hospital follow-up with Dr. Vuong on 07/13/2019 at 10 AM. STROKE Vital Signs/Narrative: Vital Signs Temp Pulse Resp BP Pulse Ox 06/28/19 12:00 98.4 F 76 20 H 160/82 H 98 06/28/19 11:37 98
[2019-06-28] MEDS: Atorvastatin Calcium 80 MG Tablet PO (21:28)
[2019-06-29] VITALS (26 sets, daily range): BP systolic 125–160; BP diastolic 57–91; PULSE 59–105; RESP 14–23; TEMP 36.6–37.3; O2SAT 93–98
[2019-06-29] MEDS: Acetaminophen 325 MG Tablet 650 MG PO ×2 (05:52→21:44)
[2019-06-29] MEDS: diazePAM 5 MG Tablet PO (05:52)
[2019-06-29] MEDS: Metoprolol Tartrate 25 MG Tablet 12.5 MG PO (08:08)
[2019-06-29] MEDS: Aspirin E.C. 81 MG Tablet PO (08:08)
--- NOTE | 2019-06-29 08:57 | PN.CARD_ITS ---
Subjectve: Patient once again has some nausea this morning, as well as a headache. Patient received baby aspirin and beta-apple this morning. The same thing happened yesterday morning as well causing her to have an episode of vomiting. Patient denies a history of migraines, but she has had headaches in the past. Telemetry showed normal sinus rhythm with rare PVC. Objective: Vital Signs Temp Pulse Resp BP Pulse Ox 99.1 F 100 14 157/90 H 96 06/29/19 08:00 06/29/19 08:08 06/29/19 08:00 06/29/19 08:08 06/29/19 08:00 Oxygen Flow Rate (L/min) 2 Oxygen Delivery Method Room Air Weight: 183 lb 13.848 oz Body Mass Index (BMI) 30.5 Intake and Output for Last 24 Hours 06/27/19 06/28/19 06/29/19 23:59 23:59 23:59 Intake Total 100 / 130 3270 / 3570 400 / 400 Output Total 700 / 700 Balance 100 / 130 2570 / 2870 400 / 400 General: Awake, Alert, Oriented x 3 HEENT: PERRL, EOMI, Sclera Non Icteric Neck: Supple, Good ROM, No Lymph Node Enlargement Lungs: Clear to auscultation Cardiovascular: Regular Rhythm, Normal S1, Normal S2, No Murmurs, No Rubs, No Gallops Rhythm: EKG: ECHO: Relatively intact EF with an EF around 50 to 55% with mild inferior lateral hypokinesis. VSP of 35 mmHg. Stress Test: Cardiac Cath: PCI: CT Surgery: Holter monitor: EPS: PPM: CXR: Chest CT Scan: Medical Necessity - Tobacco Use Smoking Status: Never smoker Assessment/Plan 1. Coronary artery disease: The patient presented with acute inferior wall myocardial infarction with occlusion of a very small distal obtuse marginal branch, successfully reopened with balloon angioplasty followed by small 2.25X 16 Promus drug-eluting stent. Patient had reestablished ALEXX-3 flow to the majority of the vessel however there was a small inferior branch which was occluded due to plaque shifting. Her echocardiogram shows very normal inferolateral hypokinesis which will hopefully improve with time. It is unclear the source of the patient's nausea, but it may be related to beta- apple. The patient received baby aspirin and Lopressor this morning. Would recommend holding her Lopressor going forward to see if this is the source of her nausea and headache. If it is, I would recommend switching her to Coreg 3.125 mg p.o. twice daily to determine if this improved her overall nausea Given her hypertension I agree with increasing her lisinopril to 10 mg daily. 2. Hyperlipidemia: Continue Lipitor. Repeat lipids in 6 weeks time. 3. Would recommend keeping the patient in the hospital until this afternoon to determine if her symptoms have improved or worsened. If her symptoms have improved, we may consider discharging her home and follow-up with me in the office. If however she still is unwell, would recommend keeping her [address]. Whitley.
--- NOTE | 2019-06-29 10:00 | EKG12_ITS ---
Test Reason : AM EKG Blood Pressure : / mmHG Vent. Rate : 080 BPM Atrial Rate : 080 BPM P-R Int : 146 ms QRS Dur : 090 ms QT Int : 408 ms P-R-T Axes : 053 -24 -45 degrees QTc Int : 470 ms Normal sinus rhythm Inferior infarct , age undetermined T wave abnormality, consider lateral ischemia Abnormal ECG When compared with ECG of 28-JUN-2019 05:10, MANUAL COMPARISON REQUIRED, DATA IS UNCONFIRMED Confirmed by MATA HOYT, MERCEDES ([id number]), editor continuity and script OSMAN PRIEST ([id number]) on 07/03/2019 9:13:32 AM Referred By: Erasto Vuong Confirmed By:MERCEDES AUGUST MD
[2019-06-29] MEDS: Lisinopril 10 MG Tablet PO (10:10)
[2019-06-29] MEDS: TICAGRELOR 90 MG TABLET PO ×2 (11:24→21:44)
--- NOTE | 2019-06-29 11:25 | EKG12_ITS ---
Test Reason : CP Blood Pressure : / mmHG Vent. Rate : 095 BPM Atrial Rate : 095 BPM P-R Int : 164 ms QRS Dur : 088 ms QT Int : 376 ms P-R-T Axes : -03 -29 -59 degrees QTc Int : 472 ms Normal sinus rhythm Inferior infarct , age undetermined T wave abnormality, consider lateral ischemia Poor R wave progression Abnormal ECG Confirmed by JAZLYN HOYT, DIANNA ([id number]), tape editor MARY TAVERAS ([id number]) on 07/04/2019 12:59:32 PM Referred By: Erasto Vuong Confirmed By:DIANNA HOBSON MD
[2019-06-29] MEDS: 0.9% Saline Lock 10 ML Syringe IV ×2 (11:45→18:15)
[2019-06-29] MEDS: Morphine 4 MG/ML Syringe IV ×2 (11:45→18:14)
[2019-06-29] MEDS: Ondansetron 4 MG/2 ML Vial IV (11:53)
[2019-06-29] MEDS: Ibuprofen 600 MG Tablet PO (12:54)
--- NOTE | 2019-06-29 13:57 | PCM.PN.HOSP ---
Patient Problems: Active and Suspected Problems (This Medical Record has been edited. Action required.) STEMI (ST elevation myocardial infarction) (Acute) Reason for Visit: Inferior wall STEMI Objective: Patient had nausea and a small emesis after taking baby aspirin and other medications. She also felt mild nausea in the morning after taking medications. She has occasional heartburn but denies history of GERD or acid reflux or EGD in the past. Denies chest pain or shortness of breath. Normal sinus rhythm on pvc monitor. Vitals/I&O's: Vital Signs Temp Pulse Resp BP Pulse Ox 98.5 F 99 19 H 139/83 H 93 06/29/19 12:00 06/29/19 13:00 06/29/19 13:00 06/29/19 13:00 06/29/19 13:49 Oxygen Flow Rate (L/min) 2 Oxygen Delivery Method Room Air Weight: 183 lb 13.848 oz Body Mass Index (BMI) 30.5 Intake and Output for Last 24 Hours 06/27/19 06/28/19 06/29/19 23:59 23:59 23:59 Intake Total 100 / 130 3270 / 3570 680 / 680 Output Total 700 / 700 Balance 100 / 130 2570 / 2870 680 / 680 General: Alert, Oriented x3, Cooperative HEENT: Atraumatic, PERRLA, EOMI, Normocephalic Oral: Moist Mucosa, No Gingival or Mucosal Lesions/ Ulcerations Neck: Supple, No JVD, Negative Carotid Bruits Lungs: Clear to auscultation, Normal air movement, No rhonchi, No wheeze, No rales Cardiovascular: Regular rate, Regular Rhythm, Normal S1, Normal S2, No murmurs Abdomen: Bowel Sounds Present, Soft, Non Tender, Non-Distended Extremities: No edema, Capillary Refill Less than 3 Seconds Skin: No rashes, No breakdown Musculoskeletal: No Tenderness to Palpation of Joints or Extremities Neurological: Cranial nerves II-XII grossly intact, Deep Tendon Reflexes 2+/4 and Symmetrical, Neuro grossly intact, Motor Exam 5/5 strength throughout Psych/Mental Status: Normal Affect, Appropriate Current Medications Acetaminophen (Tylenol) 650 mg PO Q6H PRN PRN PRN Reason: Pain Score 1-3/10 Last Admin: 06/29/19 05:52 Dose: 650 mg Documented by: Aspirin (Ecotrin) 81 mg PO DAILY@0800 [facility] Last Admin: 06/29/19 08:08 Dose: 81 mg Documented by: Atorvastatin Calcium (Lipitor) 80 mg PO QHS [facility] Last Admin: 06/28/19 21:28 Dose: 80 mg Documented by: Atropine Sulfate () 0.5 mg IV UD PRN PRN Reason: HR <50 bpm Diazepam (Valium) 5 mg PO Q6H PRN PRN PRN Reason: BACK SPASMS/ANXIETY Last Admin: 06/29/19 05:52 Dose: 5 mg Documented by: Glucagon () 1 mg IM .X1 PRN PRN Reason: Hypoglycemia Heparin Sodium (Beef Lung) (Heparin 500 Unit/5 Ml (100/Ml)) 500 unit IV UD PRN PRN Reason: HEPARIN FLUSH Dextrose (Dextrose 10%-Water) 250 mls @ 999 mls/hr IV .Q16M PRN; Protocol PRN Reason: HYPOGLYCEMIA Labetalol HCl (Trandate) 5 mg IV X1 PRN PRN Reason: SBP > 160 when pulling sheath Lisinopril (Zestril) 10 mg PO DAILY [facility] Last Admin: 06/29/19 10:10 Dose: 10 mg Documented by: Metoclopramide HCl (Reglan) 5 mg IV Q6 PRN PRN Reason: NAUSEA/VOMITING Last Admin: 06/28/19 21:42 Dose: 5 mg Documented by: Morphine Sulfate () 2 - 4 mg IV Q4H PRN PRN PRN Reason: Pain Score 1-10/10 Last Admin: 06/29/19 11:45 Dose: 4 mg Documented by: Nitroglycerin (Nitrostat) 0.4 mg SUBLINGUAL Q5M PRN PRN Reason: CARDIAC/CHEST PAIN Ondansetron HCl (Zofran) 4 mg IV Q6H PRN PRN PRN Reason: NAUSEA/VOMITING Last Admin: 06/29/19 11:53 Dose: 4 mg Documented by: Sodium Chloride () 500 ml IV BOLUS PRN PRN Reason: VASO-VAGAL PROTOCOL Sodium Chloride () 10 - 40 ml IV UD PRN PRN Reason: SALINE FLUSH Last Admin: 06/29/19 11:45 Dose: 10 ml Documented by: Ticagrelor (Brilinta) 90 mg PO BID [facility] Last Admin: 06/29/19 11:24 Dose: 90 mg Documented by: STROKE Vital Signs/Narrative: Vital Signs Temp Pulse Resp BP BP Pulse Ox 06/29/19 13:49 93 06/29/19 13:00 99 19 H 139/83 H 96 06/29/19 12:00 98.5 F 93 21 H 131/72 H 96 06/29/19 11:12 93 06/29/19 11:00 96 23 H 155/71 H 96 06/29/19 10:00 98.3 F 94 18 160/88 H 98 Medical Necessity - Tobacco Use Smoking Status: Never smoker Assessment/Plan All Active Problems (This Medical Record has been edited. Action required.) STEMI (ST elevation myocardial infarction) (Acute) The patient is a 63 year old F who previously had a female who presented with substernal excruciating sharp progressively worsening chest pain and found to have new onset ST elevation PA in inferior leads. 1. ST elevation PA, inferior wall EKG showed ST elevation in inferior leads which is new compared to EKG in 2015. The patient patient was given full dose aspirin Brilinta; heparin bolus and IV fluids. Nitroglycerin was not given because it was inferior wall PA. Patient had emergent PCI done. Reported EF 50 to 55% with mild segmental LV systolic dysfunction. Single-vessel coronary lesion distal OM1 with successful PCI of distal OM1. The patient was seen by brick baker. 06/29/2019: 2D echo was done The estimated ejection fraction is 50-55 %. Stage 1 diastolic dysfunction. Mid-Lateral : Mildly hypokinetic Mid-Posterior: Mildly hypokinetic Mild (1+) mitral valve insufficiency. Trivial tricuspid valve insufficiency. Right ventricular systolic pressure estimated to be 35 mmHg. There is no comparison study available. 2. Nausea and a small vomiting secondary to medication side effect: Metoprolol is changed to Coreg 3.125 mg twice daily. On supportive treatment with antiemetics. 3. Hypertension: Patient blood pressure is 157/90. Lisinopril dose increased from 5 mg to 10 mg daily. DVT prophylaxis Lovenox 40 mg subcu daily after 24 hours of removal of sheath. Code Visit Inpatient E&M: 24797 Subs Hosp L2
--- NOTE | 2019-06-29 14:01 | DCINST_ITS ---
- Discharge Diagnoses Current Active Problems: Current Active and Chronic Problems (This Medical Record has been edited. Action required.) Arteriosclerosis of coronary artery in patient with history of myocardial infarction (Chronic 06/28/19) Stented coronary artery (Chronic 06/28/19) Single vessel CAD of the distal OM#1 (very small, tortuous vessel) Successful PTCA/HARSHA distal OM#1 with as 2.25 x 12 Promus Synergy, 100%-->0%, no dissection. Unfortunate plaque shift down tiny inferior branch of OM#1, no additional PCI attempted of this branch. STEMI (ST elevation myocardial infarction) (Acute) You will use the following diet at home:: Cardiac Your food should be the consistency of: Regular Discharge Activity: May Not Drive - for 1 week Weight Bearing Status: Weight bearing as tolerated Call your doctor if you observe: Fever of 101 or Higher, Coldness, Increased Pain, Numbness or Tingling, Inability to urinate, Inability to have a bowel movement, Using more than one pad per hour, Shortness of breath, Dizziness, Fainting spells, Swelling in the ankles, Chest pain, Prolonged hiccoughing, Increased palpitations (irregular heartbeat), Calf discomfort, Uncontrolled pain Allergies/Adverse Reactions: Allergies No Known Allergies Allergy (Verified 06/27/19 19:58) Medications to take at Discharge Aspirin E.C. [Ecotrin] 81 mg PO DAILY@0800 #30 tablet 06/29/19 Atorvastatin Calcium [Lipitor] 80 mg PO QHS #30 tablet 06/29/19 Lisinopril [Zestril] 5 mg PO DAILY #30 tablet 06/29/19 Metoprolol Tartrate [Lopressor (beta apple)] 25 mg PO BID #60 tablet 06/29/19 Nitroglycerin (INPATIENT USE) [Nitrostat] 0.4 mg SUBLINGUAL Q5M PRN #30 tab.subl 06/29/19 Ticagrelor [Brilinta] 90 mg PO BID #60 tablet 06/29/19 The following prescriptions were given: Ticagrelor [Brilinta] 90 mg PO BID #60 tablet Aspirin E.C. [Ecotrin] 81 mg PO DAILY@0800 #30 tablet Atorvastatin Calcium [Lipitor] 80 mg PO QHS #30 tablet Metoprolol Tartrate [Lopressor (beta apple)] 25 mg PO BID #60 tablet Nitroglycerin (INPATIENT USE) [Nitrostat] 0.4 mg SUBLINGUAL Q5M PRN #30 tab.subl PRN Reason: Cardiac/Chest Pain Lisinopril [Zestril] 5 mg PO DAILY #30 tablet Orders to be completed after discharge: Phase II, Outpatient Cardiac Rehab Location: None Selected Primary Care Physician: Aftab Hillman MD [Primary Care Provider] - Please follow up with your Primary Care Physician in: in 1-2 week Test Results: Test results from this visit will be discussed in further detail at your follow- up appointment, if applicable. Please Follow Up With: Erasto Vuong MD When: on 07/13/2019
--- NOTE | 2019-06-29 14:02 | DS.PCM_ITS ---
Discharge Date and Diagnosis - Problem List Patient Problems: Active and Suspected Problems (This Medical Record has been edited. Action required.) STEMI (ST elevation myocardial infarction) (Acute) Date of Admission: 06/27/19 Date of Discharge: 06/29/19 - Primary Discharge Diagnosis Active and Suspected Problems (This Medical Record has been edited. Action required.) STEMI (ST elevation myocardial infarction) (Acute) - Secondary Discharge Diagnosis Chronic Problems (This Medical Record has been edited. Action required.) Arteriosclerosis of coronary artery in patient with history of myocardial infarction (Chronic 06/28/19) Stented coronary artery (Chronic 06/28/19) Single vessel CAD of the distal OM#1 (very small, tortuous vessel) Successful PTCA/HARSHA distal OM#1 with as 2.25 x 12 Promus Synergy, 100%-->0%, no dissection. Unfortunate plaque shift down tiny inferior branch of OM#1, no additional PCI attempted of this branch. Hospital Course and Treatment Summary of Care Provided: The patient is a 63 year old F who previously had a female who presented with substernal excruciating sharp progressively worsening chest pain and found to have new onset ST elevation DE in inferior leads. ST elevation DE, inferior wall EKG showed ST elevation in inferior leads which is new compared to EKG in 2015. The patient patient was given full dose aspirin Brilinta; heparin bolus and IV fluids. Nitroglycerin was not given because it was inferior wall DE. Patient had emergent PCI done. Reported EF 50 to 55% with mild segmental LV systolic dysfunction. Single-vessel coronary lesion distal OM1 with successful PCI of distal OM1. The patient was seen by continuous absorption process operator. 06/29/2019: 2D echo was done The estimated ejection fraction is 50-55 %. Stage 1 diastolic dysfunction. Mid-Lateral : Mildly hypokinetic Mid-Posterior: Mildly hypokinetic Mild (1+) mitral valve insufficiency. Trivial tricuspid valve insufficiency. Right ventricular systolic pressure estimated to be 35 mmHg. There is no comparison study available. Hypertension: Patient blood pressure is 157/90. Lisinopril dose increased from 5 mg to 10 mg daily. DVT prophylaxis Lovenox 40 mg subcu daily after 24 hours of removal of sheath. Patient Problems: Active and Suspected Problems (This Medical Record has been edited. Action required.) STEMI (ST elevation myocardial infarction) (Acute) Subjective: Patient had nausea last evening and night after taking pills. Patient has not been taking any medication prior to admission. Occasionally she complained of heartburn but is not diagnosed with GERD. She denies acid reflux. monitoring manager shows normal sinus rhythm heart rate, 90s to 100/min. Metoprolol dose increased to 25 twice daily. Blood pressure 157/92 - 140/82. - Physical Exam Vitals/I&O's: Vital Signs Temp Pulse Resp BP Pulse Ox 99.1 F 100 14 157/90 H 96 06/29/19 08:00 06/29/19 08:08 06/29/19 08:00 06/29/19 08:08 06/29/19 08:00 Oxygen Flow Rate (L/min) 2 Oxygen Delivery Method Room Air Weight: 183 lb 13.848 oz Body Mass Index (BMI) 30.5 Intake and Output for Last 24 Hours 06/27/19 06/28/19 06/29/19 23:59 23:59 23:59 Intake Total 100 / 130 3270 / 3570 400 / 400 Output Total 700 / 700 Balance 100 / 130 2570 / 2870 400 / 400 General: Alert, Oriented x3, Cooperative HEENT: Atraumatic, PERRLA, EOMI, Normocephalic Neck: Supple, No JVD, Negative Carotid Bruits Lungs: Clear to auscultation, Normal air movement, No rhonchi, No wheeze, No rales Cardiovascular: Regular rate, Regular Rhythm, Normal S1, Normal S2, No murmurs Abdomen: Bowel Sounds Present, Soft, Non Tender, Non-Distended Extremities: No edema, Capillary Refill Less than 3 Seconds Skin: No rashes, No breakdown Musculoskeletal: No Tenderness to Palpation of Joints or Extremities Neurological: Cranial nerves II-XII grossly intact, Deep Tendon Reflexes 2+/4 and Symmetrical, Neuro grossly intact Psych/Mental Status: Normal Affect, Appropriate Current Medications Acetaminophen (Tylenol) 650 mg PO Q6H PRN PRN PRN Reason: Pain Score 1-3/10 Last Admin: 06/29/19 05:52 Dose: 650 mg Documented by: Aspirin (Ecotrin) 81 mg PO DAILY@0800 [facility] Last Admin: 06/29/19 08:08 Dose: 81 mg Documented by: Atorvastatin Calcium (Lipitor) 80 mg PO QHS [facility] Last Admin: 06/28/19 21:28 Dose: 80 mg Documented by: Atropine Sulfate () 0.5 mg IV UD PRN PRN Reason: HR <50 bpm Diazepam (Valium) 5 mg PO Q6H PRN PRN PRN Reason: BACK SPASMS/ANXIETY Last Admin: 06/29/19 05:52 Dose: 5 mg Documented by: Glucagon () 1 mg IM .X1 PRN PRN Reason: Hypoglycemia Heparin Sodium (Beef Lung) (Heparin 500 Unit/5 Ml (100/Ml)) 500 unit IV UD PRN PRN Reason: HEPARIN FLUSH Dextrose (Dextrose 10%-Water) 250 mls @ 999 mls/hr IV .Q16M PRN; Protocol PRN Reason: HYPOGLYCEMIA Labetalol HCl (Trandate) 5 mg IV X1 PRN PRN Reason: SBP > 160 when pulling sheath Lisinopril (Zestril) 5 mg PO DAILY [facility] Last Admin: 06/28/19 08:52 Dose: 5 mg Documented by: Metoclopramide HCl (Reglan) 5 mg IV Q6 PRN PRN Reason: NAUSEA/VOMITING Last Admin: 06/28/19 21:42 Dose: 5 mg Documented by: Metoprolol Tartrate (Lopressor (Beta Sarika)) 12.5 mg PO BID [facility] Last Admin: 06/29/19 08:08 Dose: 12.5 mg Documented by: Morphine Sulfate () 2 - 4 mg IV Q4H PRN PRN PRN Reason: Pain Score 1-10/10 Last Admin: 06/28/19 18:22 Dose: 4 mg Documented by: Nitroglycerin (Nitrostat) 0.4 mg SUBLINGUAL Q5M PRN PRN Reason: CARDIAC/CHEST PAIN Ondansetron HCl (Zofran) 4 mg IV Q6H PRN PRN PRN Reason: NAUSEA/VOMITING Last Admin: 06/28/19 18:19 Dose: 4 mg Documented by: Sodium Chloride () 500 ml IV BOLUS PRN PRN Reason: VASO-VAGAL PROTOCOL Sodium Chloride () 10 - 40 ml IV UD PRN PRN Reason: SALINE FLUSH Last Admin: 06/28/19 21:43 Dose: 10 ml Documented by: Ticagrelor (Brilinta) 90 mg PO BID [facility] Last Admin: 06/28/19 21:28 Dose: 90 mg Documented by: Discharge Activity: May Not Drive - for 1 week Weight Bearing Status: Weight bearing as tolerated Call your doctor if you observe: Fever of 101 or Higher, Coldness, Increased Pain, Numbness or Tingling, Inability to urinate, Inability to have a bowel movement, Using more than one pad per hour, Shortness of breath, Dizziness, Fainting spells, Swelling in the ankles, Chest pain, Prolonged hiccoughing, Increased palpitations (irregular heartbeat), Calf discomfort, Uncontrolled pain Home Medications: Medications to take at Discharge Aspirin E.C. [Ecotrin] 81 mg PO DAILY@0800 #30 tab 06/29/19 Atorvastatin Calcium [Lipitor] 80 mg PO QHS #30 tab 06/29/19 Lisinopril [Zestril] 5 mg PO DAILY #30 tab 06/29/19 Metoprolol Tartrate [Lopressor (beta sarika)] 25 mg PO BID #60 tab 06/29/19 Nitroglycerin (INPATIENT USE) [Nitrostat] 0.4 mg SUBLINGUAL Q5M PRN #30 tab.subl 06/29/19 Ticagrelor [Brilinta] 90 mg PO BID #60 tab 06/29/19 Following Prescrptions Were Given to Patient: Ticagrelor [Brilinta] 90 mg PO BID #60 tab Aspirin E.C. [Ecotrin] 81 mg PO DAILY@0800 #30 tab Atorvastatin Calcium [Lipitor] 80 mg PO QHS #30 tab Metoprolol Tartrate [Lopressor (beta sarika)] 25 mg PO BID #60 tab Nitroglycerin (INPATIENT USE) [Nitrostat] 0.4 mg SUBLINGUAL Q5M PRN #30 tab.subl PRN Reason: Cardiac/Chest Pain Lisinopril [Zestril] 5 mg PO DAILY #30 tab Other Amb Orders: Phase II, Outpatient Cardiac Rehab Location: None Selected Primary Care Physician: Aftab Hillman MD [Primary Care Provider] - Please follow up with your Primary Care Physician in: in 1-2 week Please Follow Up With: Erasto Vuong MD When: on 07/13/2019 Medical Necessity - Tobacco Use Smoking Status: Never smoker Meaningful Use Info Meaningful Use Diagnoses (Choose all that apply): AMI - AMI Aspirin given w/in 24hrs of arrival?: Yes ASA at discharge?: Yes Statins at discharge?: Yes Juan Luis/ARB at discharge?: Yes Beta Sarika at discharge?: Yes Done w/ Acute DE measure.: Yes Documented LVEF (%): 55
[2019-06-29] MEDS: Pantoprazole Sodium 40 MG Tablet PO (15:05)
[2019-06-29] MEDS: predniSONE 20 MG Tablet 40 MG PO (18:33)
[2019-06-29] MEDS: Carvedilol 3.125 MG TABLET PO (21:44)
[2019-06-29] MEDS: Atorvastatin Calcium 80 MG Tablet PO (21:44)
[2019-06-30] VITALS (12 sets, daily range): BP systolic 117–138; BP diastolic 69–84; PULSE 87–110; RESP 16–18; TEMP 36.4–37.2; O2SAT 93–98
[2019-06-30 00:32] LABS: Bedside Glucose 147 mg/dL (70-110)
[2019-06-30 06:56] LABS: Absolute Lymphocyte Count 1.36 X10^3/uL (0.83-4.51); Absolute Neutrophil Count 14.2 X10^3/uL (2.0-7.7); Basophil# 0.03 X10^3/uL; Basophil% 0.2 % (0-1); Hematocrit 41.8 % (37-47); Hemoglobin 13.2 g/dL (12.0-15.0); Lymphocyte # 1.36 X10^3/ul (4.0); Lymphocyte % 7.6 % (19-41); Mean Corp Hgb Conc 31.6 g/dL (32-36); Mean Corpuscular Hgb 26.6 pg (27.0-32.0); Mean Corpuscular Volume 84.1 fL (81-99); Mean Platelet Vol. 10.1 fl (6.2-12.0); Monocyte# 2.26 X10^3/uL; Monocyte% 12.6 % (0-10); NRBC Flagged by Analyzer 0 % (0-5); Neutrophil # 14.23 X10^3/uL (2.7-7.7); Neutrophil % 79.1 % (47-70); POSITIVE DIFFERENTIAL YES; Platelet Count 300 K/mm3 (150-450); RBC Distribution Width CV 14.3 % (11.6-14.6); RBC Distribution Width SD 43.7 fl (35.1-43.9); Red Blood Count 4.97 M/mm3 (4.2-5.4)
--- NOTE | 2019-06-30 06:58 | PN.CARD_ITS ---
Subjectve: Patient seen and evaluated. Appears to have some chest discomfort when she takes in a deep breath. Also having shoulder discomfort. Actually has a heating pad on it. Said it got somewhat better after the dose of pain medication Objective: Vital Signs Temp Pulse Resp BP Pulse Ox 98.4 F 101 H 18 132/80 H 93 06/30/19 02:30 06/30/19 02:52 06/30/19 02:30 06/30/19 02:30 06/30/19 02:30 Oxygen Flow Rate (L/min) 2 Oxygen Delivery Method Room Air Weight: 180 lb 15.992 oz Body Mass Index (BMI) 30.5 Intake and Output for Last 24 Hours 06/28/19 06/29/19 06/30/19 23:59 23:59 23:59 Intake Total 3270 / 3570 1160 / 1400 240 / 240 Output Total 700 / 700 Balance 2570 / 2870 1160 / 1400 240 / 240 General: Awake, Alert, Oriented x 3 HEENT: PERRL, EOMI, Sclera Non Icteric Neck: Supple, Good ROM, No Lymph Node Enlargement Lungs: Clear to auscultation Cardiovascular: Regular Rhythm, Normal S1, Normal S2, No Murmurs, No Rubs, No Gallops, Pericardial Friction Rub Vascular: No Carotid Bruits, Normal Femoral Pulses, Normal Radial Pulses, Normal Dorsalis Pedal Pulse, Normal Posterior Tibial Pulses Abdomen: Bowel Sounds Present, Soft, Non Tender, No HSM, No Organomegaly Extremities: No Cyanosis, No Clubbing, No edema Musculoskeletal: No Erythema Skin: No Rashes Lymphatic: No Lymph Node Enlargement Neurological: No Focal Motor or Sensory Deficit Psych/Mental Status: Appropriate Rhythm: EKG: ECHO: Stress Test: Cardiac Cath: PCI: CT Surgery: Holter monitor: EPS: PPM: CXR: Chest CT Scan: Medical Necessity - Tobacco Use Smoking Status: Never smoker Assessment/Plan 1. Coronary artery disease: The patient presented with acute inferior wall myocardial infarction with occlusion of a very small distal obtuse marginal branch, successfully reopened with balloon angioplasty followed by small 2.25X 16 Promus drug-eluting stent. Patient had reestablished ALEXX-3 flow to the majority of the vessel however there was a small inferior branch which was occluded due to plaque shifting. Her echocardiogram shows mild inferolateral hypokinesis which will hopefully improve with time. 2. Chest pain-likely pericarditis * Patient has a 2 component pericardial friction rub as well as chest discomfort on deep inspiration as well as radiating to the left shoulder. * Would recommend guideline medical therapy with nonsteroidal anti-inflammatory agent * Colchicine 0.6 mg twice daily * Will discontinue prednisone as this leads to a propensity to recurrent pericarditis * Will recommend observing 1 more day in the hospital * 3. Hypertension * Good control continue current medical therapy with lisinopril * 4. Hyperlipidemia * Continue risk factor modification * * Thank you for allowing me to participate in the care of your patient. Please don't hesitate to call if any issues arise
[2019-06-30 07:06] LABS: Differential Indicated SCAN CRITERIA MET
[2019-06-30 07:34] LABS: Anion Gap 4 (5-15); BUN 6 mg/dL (7-18); Calcium,Total 8.7 mg/dL (8.5-10.1); Chloride 108 mmol/L (98-107); EST Glomerular Filtration Rate 106 mL/min (>60); Est Glom Filt Rate - Afr Amer 128 mL/min (>60); Estimated Creatinine Clearance 87.51 ml/min; Glucose 128 mg/dL (74-106); Potassium 4.3 mmol/L (3.5-5.1); Sodium Level 140 mmol/L (136-145)
[2019-06-30] MEDS: Indomethacin 25 MG Capsule PO ×3 (08:04→17:54)
[2019-06-30] MEDS: Aspirin E.C. 81 MG Tablet PO (08:04)
[2019-06-30] MEDS: 0.9% Saline Lock 10 ML Syringe IV (08:05)
[2019-06-30] MEDS: Carvedilol 3.125 MG TABLET PO ×2 (09:50→21:38)
[2019-06-30] MEDS: Acetaminophen 325 MG Tablet 650 MG PO (09:51)
[2019-06-30] MEDS: Pantoprazole Sodium 40 MG Tablet PO (09:51)
[2019-06-30] MEDS: TICAGRELOR 90 MG TABLET PO ×2 (09:58→21:37)
[2019-06-30] MEDS: Lisinopril 10 MG Tablet PO (09:58)
--- NOTE | 2019-06-30 10:00 | EKG12_ITS ---
Test Reason : AM Blood Pressure : / mmHG Vent. Rate : 090 BPM Atrial Rate : 090 BPM P-R Int : 150 ms QRS Dur : 086 ms QT Int : 382 ms P-R-T Axes : 004 -28 -67 degrees QTc Int : 467 ms Normal sinus rhythm Inferior infarct , age undetermined T wave abnormality, consider lateral ischemia Abnormal ECG Confirmed by JAZLYN HOYT, DIANNA ([id number]), supervising film or videotape editor MARY TAVERAS ([id number]) on 07/04/2019 11:36:09 AM Referred By: Erasto Vuong Confirmed By:DIANNA HOBSON MD
--- NOTE | 2019-06-30 15:53 | PN_ITS ---
Patient Problems: Active and Suspected Problems (This Medical Record has been edited. Action required.) STEMI (ST elevation myocardial infarction) (Acute) Reason for Visit: Patient heart rate is controlled in the 80s. Regular rhythm. No fever or chills. Yesterday all the nausea and vomiting subsided patient complain of chest pain midsternal in location, better on sitting position suspicious of pericarditis. Vitals/I&O's: Vital Signs Temp Pulse Resp BP Pulse Ox 98.1 F 98 16 138/82 H 96 06/30/19 13:31 06/30/19 15:00 06/30/19 13:31 06/30/19 13:31 06/30/19 13:31 Oxygen Flow Rate (L/min) 2 Oxygen Delivery Method Room Air Weight: 180 lb 15.992 oz Body Mass Index (BMI) 30.5 Intake and Output for Last 24 Hours 06/28/19 06/29/19 06/30/19 23:59 23:59 23:59 Intake Total 3270 / 3570 1160 / 1400 850 / 850 Output Total 700 / 700 Balance 2570 / 2870 1160 / 1400 850 / 850 General: Alert, Oriented x3, Cooperative HEENT: Atraumatic, PERRLA, EOMI, Normocephalic Neck: Supple, No JVD, Negative Carotid Bruits Lungs: Clear to auscultation, Normal air movement, No rhonchi, No wheeze, No rales Cardiovascular: Regular rate, Regular Rhythm, Normal S1, Normal S2, No murmurs Abdomen: Bowel Sounds Present, Soft, Non Tender, Non-Distended Extremities: No edema, Capillary Refill Less than 3 Seconds Skin: No rashes, No breakdown Musculoskeletal: No Tenderness to Palpation of Joints or Extremities Neurological: Cranial nerves II-XII grossly intact, Deep Tendon Reflexes 2+/4 and Symmetrical, Neuro grossly intact Psych/Mental Status: Normal Affect, Appropriate Laboratory Results 06/29/19 21:33: POC Glucose 147 H 06/30/19 06:33: Sodium 140, Potassium 4.3, Chloride 108 H, Carbon Dioxide 28.0, Anion Gap 4 L, BUN 6 L, Creatinine 0.60, Estim Creat Clear Calc 87.51, Est GFR (MDRD) Af Amer 128, Est GFR (MDRD) Non-Af 106, BUN/Creatinine Ratio 10.0, Glucose 128 H, Calcium 8.7, Magnesium 2.0 06/30/19 06:33: WBC 18.0 H, RBC 4.97, Hgb 13.2, Hct 41.8, MCV 84.1, MCH 26.6 L, MCHC 31.6 L, RDW Std Deviation 43.7, RDW Coeff of Asiya 14.3, Plt Count 300, MPV 10.1, Immature Gran % (Auto) 0.500, Neut % (Auto) 79.1 H, Lymph % (Auto) 7.6 L, [place] % (Auto) 12.6 H, Eos % (Auto) 0.0, Baso % (Auto) 0.2, Absolute Neuts (auto) 14.2 H, Absolute Lymphs (auto) 1.36, Nucleated RBC % 0, Diff Path Review May foll Current Medications Acetaminophen (Tylenol) 650 mg PO Q6H PRN PRN PRN Reason: Pain Score 1-310 Last Admin: 06/30/19 09:51 Dose: 650 mg Documented by: Aspirin (Ecotrin) 81 mg PO DAILY@0800 [facility] Last Admin: 06/30/19 08:04 Dose: 81 mg Documented by: Atorvastatin Calcium (Lipitor) 80 mg PO QHS [facility] Last Admin: 06/29/19 21:44 Dose: 80 mg Documented by: Atropine Sulfate () 0.5 mg IV UD PRN PRN Reason: HR <50 bpm Carvedilol (Coreg) 3.125 mg PO BID [facility] Last Admin: 06/30/19 09:50 Dose: 3.125 mg Documented by: Colchicine (Colchicine) 0.6 mg PO BID [facility] Last Admin: 06/30/19 09:50 Dose: 0.6 mg Documented by: Diazepam (Valium) 5 mg PO Q6H PRN PRN PRN Reason: BACK SPASMS/ANXIETY Last Admin: 06/29/19 05:52 Dose: 5 mg Documented by: Glucagon () 1 mg IM .X1 PRN PRN Reason: Hypoglycemia Heparin Sodium (Beef Lung) (Heparin 500 Unit/5 Ml (100/Ml)) 500 unit IV UD PRN PRN Reason: HEPARIN FLUSH Dextrose (Dextrose 10%-Water) 250 mls @ 999 mls/hr IV .Q16M PRN; Protocol PRN Reason: HYPOGLYCEMIA Indomethacin (Indocin) 25 mg PO TIDCM [facility] Last Admin: 06/30/19 12:26 Dose: 25 mg Documented by: Labetalol HCl (Trandate) 5 mg IV X1 PRN PRN Reason: SBP > 160 when pulling sheath Lisinopril (Zestril) 10 mg PO DAILY [facility] Last Admin: 06/30/19 09:58 Dose: 10 mg Documented by: Metoclopramide HCl (Reglan) 5 mg IV Q6 PRN PRN Reason: NAUSEA/VOMITING Last Admin: 06/28/19 21:42 Dose: 5 mg Documented by: Morphine Sulfate () 2 - 4 mg IV Q4H PRN PRN PRN Reason: Pain Score 1-10/10 Last Admin: 06/29/19 18:14 Dose: 4 mg Documented by: Nitroglycerin (Nitrostat) 0.4 mg SUBLINGUAL Q5M PRN PRN Reason: CARDIAC/CHEST PAIN Ondansetron HCl (Zofran) 4 mg IV Q6H PRN PRN PRN Reason: NAUSEA/VOMITING Last Admin: 06/29/19 11:53 Dose: 4 mg Documented by: Pantoprazole Sodium (Protonix) 40 mg PO DAILY [facility] Last Admin: 06/30/19 09:51 Dose: 40 mg Documented by: Sodium Chloride () 500 ml IV BOLUS PRN PRN Reason: VASO-VAGAL PROTOCOL Sodium Chloride () 10 - 40 ml IV UD PRN PRN Reason: SALINE FLUSH Last Admin: 06/30/19 08:05 Dose: 10 ml Documented by: Ticagrelor (Brilinta) 90 mg PO BID [facility] Last Admin: 06/30/19 09:58 Dose: 90 mg Documented by: STROKE Vital Signs/Narrative: Vital Signs Temp Pulse Resp BP Pulse Ox 06/30/19 15:00 98 06/30/19 13:31 98.1 F 95 16 138/82 H 96 Medical Necessity - Tobacco Use Smoking Status: Never smoker Assessment/Plan All Active Problems (This Medical Record has been edited. Action required.) STEMI (ST elevation myocardial infarction) (Acute) The patient is a 63 year old F who previously had a female who presented with substernal excruciating sharp progressively worsening chest pain and found to have new onset ST elevation MT in inferior leads. 1. ST elevation MT, inferior wall EKG showed ST elevation in inferior leads which is new compared to EKG in 2015. The patient patient was given full dose aspirin Brilinta; heparin bolus and IV fluids. Nitroglycerin was not given because it was inferior wall MT. Patient had emergent PCI done. Reported EF 50 to 55% with mild segmental LV systolic dysfunction. Single-vessel coronary lesion distal OM1 with successful PCI of distal OM1. The patient was seen by replenishment merchandising associate. 06/29/2019: 2D echo was done The estimated ejection fraction is 50-55 %. Stage 1 diastolic dysfunction. Mid-Lateral : Mildly hypokinetic Mid-Posterior: Mildly hypokinetic Mild (1+) mitral valve insufficiency. Trivial tricuspid valve insufficiency. Right ventricular systolic pressure estimated to be 35 mmHg. There is no comparison study available. 06/30/2019: Discussed with replenishment merchandising associate. Chest pain most likely secondary to pericarditis. Has pericardial rub and chest pain characteristics suggestive of pericarditis. On NSAID, colchicine. Plan for possible discharge postponed for tomorrow for further observation. On indomethacin, and colchicine 2. Nausea and a small vomiting secondary to medication side effect: Metoprolol is changed to Coreg 3.125 mg twice daily. On supportive treatment with antiemetics. Resolved. 3. Hypertension: Patient blood pressure is 157/90. Lisinopril dose increased from 5 mg to 10 mg daily. DVT prophylaxis Lovenox 40 mg subcu daily after 24 hours of removal of sheath. Clinical Impression(s) from Imaging Studies Chest X-Ray 06/27/19 20:09 IMPRESSION: No acute findings. Active Medications Acetaminophen (Tylenol) 650 mg PO Q6H PRN PRN PRN Reason: Pain Score 1-3/10 Last Admin: 06/30/19 09:51 Dose: 650 mg Documented by: Aspirin (Ecotrin) 81 mg PO DAILY@0800 [facility] Last Admin: 06/30/19 08:04 Dose: 81 mg Documented by: Atorvastatin Calcium (Lipitor) 80 mg PO QHS [facility] Last Admin: 06/29/19 21:44 Dose: 80 mg Documented by: Atropine Sulfate () 0.5 mg IV UD PRN PRN Reason: HR <50 bpm Carvedilol (Coreg) 3.125 mg PO BID [facility] Last Admin: 06/30/19 09:50 Dose: 3.125 mg Documented by: Colchicine (Colchicine) 0.6 mg PO BID [facility] Last Admin: 06/30/19 09:50 Dose: 0.6 mg Documented by: Diazepam (Valium) 5 mg PO Q6H PRN PRN PRN Reason: BACK SPASMS/ANXIETY Last Admin: 06/29/19 05:52 Dose: 5 mg Documented by: Glucagon () 1 mg IM .X1 PRN PRN Reason: Hypoglycemia Heparin Sodium (Beef Lung) (Heparin 500 Unit/5 Ml (100/Ml)) 500 unit IV UD PRN PRN Reason: HEPARIN FLUSH Dextrose (Dextrose 10%-Water) 250 mls @ 999 mls/hr IV .Q16M PRN; Protocol PRN Reason: HYPOGLYCEMIA Indomethacin (Indocin) 25 mg PO TIDCM [facility] Last Admin: 06/30/19 12:26 Dose: 25 mg Documented by: Labetalol HCl (Trandate) 5 mg IV X1 PRN PRN Reason: SBP > 160 when pulling sheath Lisinopril (Zestril) 10 mg PO DAILY [facility] Last Admin: 06/30/19 09:58 Dose: 10 mg Documented by: Metoclopramide HCl (Reglan) 5 mg IV Q6 PRN PRN Reason: NAUSEA/VOMITING Last Admin: 06/28/19 21:42 Dose: 5 mg Documented by: Morphine Sulfate () 2 - 4 mg IV Q4H PRN PRN PRN Reason: Pain Score 1-10/10 Last Admin: 06/29/19 18:14 Dose: 4 mg Documented by: Nitroglycerin (Nitrostat) 0.4 mg SUBLINGUAL Q5M PRN PRN Reason: CARDIAC/CHEST PAIN Ondansetron HCl (Zofran) 4 mg IV Q6H PRN PRN PRN Reason: NAUSEA/VOMITING Last Admin: 06/29/19 11:53 Dose: 4 mg Documented by: Pantoprazole Sodium (Protonix) 40 mg PO DAILY [facility] Last Admin: 06/30/19 09:51 Dose: 40 mg Documented by: Sodium Chloride () 500 ml IV BOLUS PRN PRN Reason: VASO-VAGAL PROTOCOL Sodium Chloride () 10 - 40 ml IV UD PRN PRN Reason: SALINE FLUSH Last Admin: 06/30/19 08:05 Dose: 10 ml Documented by: Ticagrelor (Brilinta) 90 mg PO BID [facility] Last Admin: 06/30/19 09:58 Dose: 90 mg Documented by: Code Visit Inpatient E&M: [id number] Subs Hosp L2
--- NOTE | 2019-06-30 18:22 | NURSING ---
Reviewed and agreed on all charting with Christina Duggan RN
[2019-06-30] MEDS: Atorvastatin Calcium 80 MG Tablet PO (21:37)
[2019-07-01] VITALS (7 sets, daily range): BP systolic 102–121; BP diastolic 59–79; PULSE 89–100; RESP 16–18; TEMP 36.5–36.6; O2SAT 95–98
[2019-07-01] MEDS: Indomethacin 25 MG Capsule PO ×2 (07:46→12:09)
[2019-07-01] MEDS: Aspirin E.C. 81 MG Tablet PO (07:46)
--- NOTE | 2019-07-01 08:40 | PN.CARD_ITS ---
Subjectve: Patient seen and evaluated. Appears to be doing much better this morning. Did have some diarrhea though. Objective: Vital Signs Temp Pulse Resp BP Pulse Ox 98 F 92 18 109/72 96 07/01/19 03:25 07/01/19 03:25 07/01/19 03:25 07/01/19 03:25 07/01/19 03:25 Oxygen Flow Rate (L/min) 2 Oxygen Delivery Method Room Air Weight: 181 lb 10.574 oz Body Mass Index (BMI) 30.5 Intake and Output for Last 24 Hours 06/29/19 06/30/19 07/01/19 23:59 23:59 23:59 Intake Total 1160 / 1400 1330 / 1570 360 / 360 Balance 1160 / 1400 1330 / 1570 360 / 360 General: Awake, Alert, Oriented x 3 HEENT: PERRL, EOMI, Sclera Non Icteric Neck: Supple, Good ROM, No Lymph Node Enlargement Lungs: Clear to auscultation Cardiovascular: Regular Rhythm, Normal S1, Normal S2, No Murmurs, No Rubs, No Gallops Vascular: No Carotid Bruits, Normal Femoral Pulses, Normal Radial Pulses, Normal Dorsalis Pedal Pulse, Normal Posterior Tibial Pulses Abdomen: Bowel Sounds Present, Soft, Non Tender, No HSM, No Organomegaly Extremities: No Cyanosis, No Clubbing, No edema Musculoskeletal: No Erythema Skin: No Rashes Lymphatic: No Lymph Node Enlargement Neurological: No Focal Motor or Sensory Deficit Psych/Mental Status: Appropriate Rhythm: EKG: ECHO: Stress Test: Cardiac Cath: PCI: CT Surgery: Holter monitor: EPS: PPM: CXR: Chest CT Scan: Medical Necessity - Tobacco Use Smoking Status: Never smoker Assessment/Plan 1. Coronary artery disease: The patient presented with acute inferior wall myocardial infarction with occlusion of a very small distal obtuse marginal branch, successfully reopened with balloon angioplasty followed by small 2.25X 16 Promus drug-eluting stent. Patient had reestablished ALEXX-3 flow to the majority of the vessel however there was a small inferior branch which was occluded due to plaque shifting. Her echocardiogram shows mild inferolateral hypokinesis which will hopefully improve with time. 2. Chest pain-likely pericarditis * Patient had a 2 component pericardial friction rub as well as chest discomfort on deep inspiration as well as radiating to the left shoulder. * This has improved remarkably on the anti-inflammatory agent as well as the colchicine. * Patient did develop some diarrhea with the colchicine, and expected side effect. * Would recommend discharging on the anti-inflammatory agent for 7 days with an antacid, and a reduced dose of the colchicine 0.3 mg a day for 7 days. Starting tomorrow 3. Hypertension * Good control continue current medical therapy with lisinopril * 4. Hyperlipidemia * Continue risk factor modification * * * Patient can be discharged home later today. * Thank you for allowing me to participate in the care of your patient. Please don't hesitate to call if any issues arise
[2019-07-01] MEDS: Pantoprazole Sodium 40 MG Tablet PO (09:19)
[2019-07-01] MEDS: Carvedilol 3.125 MG TABLET PO (09:19)
[2019-07-01] MEDS: Lisinopril 10 MG Tablet PO (09:54)
[2019-07-01] MEDS: TICAGRELOR 90 MG TABLET PO (09:54)
--- NOTE | 2019-07-01 13:47 | PCM.DC ---
- Discharge Diagnoses Current Active Problems: Current Active and Chronic Problems (This Medical Record has been edited. Action required.) Arteriosclerosis of coronary artery in patient with history of myocardial infarction (Chronic 06/28/19) Stented coronary artery (Chronic 06/28/19) Single vessel CAD of the distal OM#1 (very small, tortuous vessel) Successful PTCA/HARSHA distal OM#1 with as 2.25 x 12 Promus Synergy, 100%-->0%, no dissection. Unfortunate plaque shift down tiny inferior branch of OM#1, no additional PCI attempted of this branch. STEMI (ST elevation myocardial infarction) (Acute) You will use the following diet at home:: Cardiac Your food should be the consistency of: Regular Your liquids should be the consistency of: Regular/Thin Discharge Activity: - - You may remove the dressing in 1 day. You may shower in 1 day. No sex for 10-14 days. Do not lift more than 10 pounds for the next 10-14 days. No strenuous activity. You may start a walking program and work up to 30 minutes daily 5-6 times a week. No hills. May resume sexual activity in: 2 weeks Call your doctor if your incision/area has: Continuous Slow Oozing, Sudden Increased Bleeding, Increased Pain/ Swelling, Increased Redness, Foul Smelling Discharge, Swelling at the incision site Call your doctor if you observe: Fever of 101 or Higher, Shortness of breath, Dizziness, Fainting spells, Swelling in the ankles, Chest pain, Increased palpitations (irregular heartbeat), Calf discomfort Cleanse incision/area with: Soap & Water Instructions: Pericarditis Additional Instructions: The diarrhea is caused by the colchicine which is being used to decreased the infalmmation in the pericardium (the sac your heart sits in). This is called pericarditis. This sometimes happens after a heart attack. You are also taking Indomethacin for the pericarditis and this medication can upset your stomach so ALWAYS take it with food. You were initially started on Colchicine 0.4 mg twice a day and the dose has been decreased to 0.3 mg once a day. Do not start the Colchicine until the diarrhea has resolved. If this is longer than [address] Cao's office for advice. Allergies/Adverse Reactions: Allergies No Known Allergies Allergy (Verified 06/27/19 19:58) Medications to take at Discharge Aspirin [Aspirin, Baby] 81 mg PO DAILY@0800 #30 tab.chew 07/01/19 Atorvastatin Calcium 80 mg PO QHS #30 tab 07/01/19 Colchicine 0.3 mg PO DAILYCM #7 tab 07/01/19 Indomethacin [Indocin] 25 mg PO TIDCM #21 cap 07/01/19 Lisinopril [Zestril] 10 mg PO DAILY #30 tab 07/01/19 Loperamide [Imodium] 2 - 4 mg PO Q4H PRN PRN cap 07/01/19 Metoprolol Tartrate 25 mg PO BID #60 tab 07/01/19 Nitroglycerin (INPATIENT USE) [Nitrostat] 0.4 mg SUBLINGUAL Q5M PRN #1 bot 07/01/19 Ticagrelor [Brilinta] 90 mg PO BID #60 tab 07/01/19 The following prescriptions were given: Aspirin [Aspirin, Baby] 81 mg PO DAILY@0800 #30 tab.chew Transmission Status: Pending to [facility] #30 Atorvastatin Calcium 80 mg PO QHS #30 tab Transmission Status: Pending to [facility] #30 Ticagrelor [Brilinta] 90 mg PO BID #60 tab Transmission Status: Pending to [facility] #30 Colchicine 0.3 mg PO DAILYCM #7 tab Transmission Status: Received by [facility] #30 Indomethacin [Indocin] 25 mg PO TIDCM #21 cap Transmission Status: Received by [facility] #30 Metoprolol Tartrate 25 mg PO BID #60 tab Transmission Status: Pending to [facility] #30 Nitroglycerin (INPATIENT USE) [Nitrostat] 0.4 mg SUBLINGUAL Q5M PRN #1 bot PRN Reason: Chest Pain Transmission Status: Pending to [facility] #30 Lisinopril [Zestril] 10 mg PO DAILY #30 tab Transmission Status: Received by [facility] #30 Orders to be completed after discharge: Phase II, Outpatient Cardiac Rehab Location: None Selected Primary Care Physician: Aftab Hillman MD [Primary Care Provider] - Please follow up with your Primary Care Physician in: 5-7 days Test Results: Test results from this visit will be discussed in further detail at your follow-up appointment, if applicable. Please Follow Up With: Erasto Vuong MD When: 2 weeks Proposed Discharge Date: 07/01/19
[2019-07-01] MEDS: Loperamide 2 MG Capsule PO (13:53)
[2019-07-01] MEDS: 0.9% Saline Lock 10 ML Syringe IV (13:54)
--- NOTE | 2019-07-01 14:09 | PCM.DC.SUM ---
Discharge Date and Diagnosis - Problem List Patient Problems: Active and Suspected Problems (This Medical Record has been edited. Action required.) Diarrhea (Acute) Pericarditis (Acute) STEMI (ST elevation myocardial infarction) (Acute) Date of Admission: 06/27/19 Date of Discharge: 07/01/19 - Primary Discharge Diagnosis Active and Suspected Problems (This Medical Record has been edited. Action required.) STEMI (ST elevation myocardial infarction) (Acute) PTCA/HARSHA distal OM #1 Pericarditis (Acute) Diarrhea (Acute) due to Colchicine - Secondary Discharge Diagnosis Chronic Problems (This Medical Record has been edited. Action required.) HTN (hypertension) (Chronic) Dyslipidemia (Chronic) Arteriosclerosis of coronary artery in patient with history of myocardial infarction (Chronic 06/28/19) Stented coronary artery (Chronic 06/28/19) Single vessel CAD of the distal OM#1 (very small, tortuous vessel) Successful PTCA/HARSHA distal OM#1 with as 2.25 x 12 Promus Synergy, 100%-->0%, no dissection. Unfortunate plaque shift down tiny inferior branch of OM#1, no additional PCI attempted of this branch. Hospital Course and Treatment Imaging Results: Clinical Impression(s) from Imaging Studies Chest X-Ray 06/27/19 20:09 IMPRESSION: No acute findings. Electronically Signed: Lynda Hugo MD at 20:41 EST Tel , Service support , [facility] - Dr. Cao and Dr. Vuong Operations: None Procedures: 2-D Echocardiogram - Interpretation Summary The estimated ejection fraction is 50-55 %. Stage 1 diastolic dysfunction. Mid-Lateral : Mildly hypokinetic Mid-Posterior: Mildly hypokinetic Mild (1+) mitral valve insufficiency. Trivial tricuspid valve insufficiency. Right ventricular systolic pressure estimated to be 35 mmHg. There is no comparison study available., Cardiac catheterization - Segmented LV systolic dysfunction- Mild LVEF: by LV gram 50-55 % Elevated Left Ventricular End Diastolic Pressure Single vessel CAD of the distal OM#1 (very small, tortuous vessel) Successful PTCA/HARSHA distal OM#1 with as 2.25 x 12 Promus Synergy, 100%-->0%, no dissection. Unfortunate plaque shift down tiny inferior branch of OM#1, no additional PCI attempted of this branch. No additional stress test or PCI required of other vessels. Summary of Care Provided: The patient is a 63 year old F with no significant past medical history who presented to the emergency department at [facility] on 06/27/2019 complaining of excruciating substernal chest pain that started while she was driving her car. She had pain for approximately 45 minutes prior to arriving in the emergency department. The pain radiated to both arms. EKG in the emergency department showed ST elevation in the inferior leads and a STEMI alert was called. The patient received aspirin, Brilinta, heparin bolus and IV fluid bolus in the emergency department. She was taken to [facility] by Dr. Vuong and the cath showed an angiographically normal left main, LAD, circumflex and RCA. Obtuse marginal #1 was occluded distally. The LV gram showed a 50-55% EF with mild inferolateral hypokinesis. She underwent a successful PTCA/HARSHA to OM #1 and transferred to the intensive care unit postprocedure. On 06/30 she had some chest discomfort when taking a deep breath. Dr. Cao felt this was most likely due to pericarditis as she had a 2 component pericardial friction rub. She was started on Indocin 25 mg p.o. 3 times daily and colchicine 0.6 mg twice daily. Unfortunately there is drug interaction between Coreg and Colchicine and it increases risk for colchicine toxicity. She developed severe diarrhea. Colchicine was decreased to 0.3 mg daily and the Coreg was discontinued and she was started on Metoprolol. she was given Imodium as needed every 4 hours for diarrhea. I was hesitant to discharge her home with so much diarrhea however she reassured me that she would increase her fluid intake and continue Imodium. She was discharged home on 07/01/19 with RX's for Atorvastatin, ASA, Brilinta, Metoprolol and Lisinopril. She was also given a RX for NTG and instructions on how to use it. She will take the Indocin with food to decrease the risk for gastritis and intolerance. She will follow-up with her primary care physician, Dr. Hernandez, in 5 to 7 days. She will follow-up with Dr. Vuong in the office in 2 weeks. I met with the pt and her prior to DC and discussed the medications and how and why she is going to take them. All questions were answered. PHYSICAL EXAM: GENERAL: alert, oriented X 3, Cooperative, in the BR frequently for BM's, denies abd pain or nausea, denies lightheadedness ORAL: moist mucosa, no mucosal lesions NECK: No JVD, supple, trachea midline, no carotid bruits LUNGS: CTA, symmetric chest expansion HEART: RRR, Normal S1 and S2, no rub, no gallop, + rub (2 component) ABDOMEN: soft, NT, ND, BS present, no guarding with palpation EXTREMITIES: no edema, no cyanosis, no calf tenderness, peripheral pulses are normal in the upper and lower extremities SKIN: No rashes, no breakdown NEUROLOGIC: no focal neurologic deficits PSYCH: appropriate, normal affect, pleasant This note was generated with [employer] dictation software. It may contain incorrect words, spelling, and punctuation that were not noted in checking the note before signing. Patient Problems: Active and Suspected Problems (This Medical Record has been edited. Action required.) Diarrhea (Acute) Pericarditis (Acute) STEMI (ST elevation myocardial infarction) (Acute) - Physical Exam Vitals/I&O's: Vital Signs Temp Pulse Resp BP Pulse Ox 97.9 F 95 16 121/79 H 96 07/01/19 09:14 07/01/19 09:14 07/01/19 09:14 07/01/19 09:14 07/01/19 09:14 Oxygen Flow Rate (L/min) 2 Oxygen Delivery Method Room Air Weight: 181 lb 10.574 oz Body Mass Index (BMI) 30.5 Intake and Output for Last 24 Hours 06/29/19 06/30/19 07/01/19 23:59 23:59 23:59 Intake Total 1160 / 1400 1330 / 1570 1100 / 1100 Balance 1160 / 1400 1330 / 1570 1100 / 1100 Current Medications Acetaminophen (Tylenol) 650 mg PO Q6H PRN PRN PRN Reason: Pain Score 1-3/10 Last Admin: 06/30/19 09:51 Dose: 650 mg Documented by: Aspirin (Ecotrin) 81 mg PO DAILY@0800 [facility] Last Admin: 07/01/19 07:46 Dose: 81 mg Documented by: Atorvastatin Calcium (Lipitor) 80 mg PO QHS [facility] Last Admin: 06/30/19 21:37 Dose: 80 mg Documented by: Atropine Sulfate () 0.5 mg IV UD PRN PRN Reason: HR <50 bpm Carvedilol (Coreg) 3.125 mg PO BID [facility] Last Admin: 07/01/19 09:19 Dose: 3.125 mg Documented by: Colchicine (Colchicine) 0.3 mg PO DAILYCM [facility] Last Admin: 07/01/19 10:45 Dose: 0.3 mg Documented by: Diazepam (Valium) 5 mg PO Q6H PRN PRN PRN Reason: BACK SPASMS/ANXIETY Last Admin: 06/29/19 05:52 Dose: 5 mg Documented by: Glucagon () 1 mg IM .X1 PRN PRN Reason: Hypoglycemia Heparin Sodium (Beef Lung) (Heparin 500 Unit/5 Ml (100/Ml)) 500 unit IV UD PRN PRN Reason: HEPARIN FLUSH Dextrose (Dextrose 10%-Water) 250 mls @ 999 mls/hr IV .Q16M PRN; Protocol PRN Reason: HYPOGLYCEMIA Indomethacin (Indocin) 25 mg PO TIDCM [facility] Last Admin: 07/01/19 12:09 Dose: 25 mg Documented by: Labetalol HCl (Trandate) 5 mg IV X1 PRN PRN Reason: SBP > 160 when pulling sheath Lisinopril (Zestril) 10 mg PO DAILY [facility] Last Admin: 07/01/19 09:54 Dose: 10 mg Documented by: Loperamide HCl (Imodium) 2 - 4 mg PO Q4H PRN PRN PRN Reason: DIARRHEA/LOOSE STOOLS Last Admin: 07/01/19 13:53 Dose: 4 mg Documented by: Metoclopramide HCl (Reglan) 5 mg IV Q6 PRN PRN Reason: NAUSEA/VOMITING Last Admin: 06/28/19 21:42 Dose: 5 mg Documented by: Morphine Sulfate () 2 - 4 mg IV Q4H PRN PRN PRN Reason: Pain Score 1-10/10 Last Admin: 06/29/19 18:14 Dose: 4 mg Documented by: Nitroglycerin (Nitrostat) 0.4 mg SUBLINGUAL Q5M PRN PRN Reason: CARDIAC/CHEST PAIN Ondansetron HCl (Zofran) 4 mg IV Q6H PRN PRN PRN Reason: NAUSEA/VOMITING Last Admin: 06/29/19 11:53 Dose: 4 mg Documented by: Pantoprazole Sodium (Protonix) 40 mg PO DAILY [facility] Last Admin: 07/01/19 09:19 Dose: 40 mg Documented by: Sodium Chloride () 500 ml IV BOLUS PRN PRN Reason: VASO-VAGAL PROTOCOL Sodium Chloride () 10 - 40 ml IV UD PRN PRN Reason: SALINE FLUSH Last Admin: 07/01/19 13:54 Dose: 10 ml Documented by: Ticagrelor (Brilinta) 90 mg PO BID [facility] Last Admin: 07/01/19 09:54 Dose: 90 mg Documented by: Discharge Activity: - - You may remove the dressing in 1 day. You may shower in 1 day. No sex for 10-14 days. Do not lift more than 10 pounds for the next 10-14 days. No strenuous activity. You may start a walking program and work up to 30 minutes daily 5-6 times a week. No hills. May resume sexual activity in: 2 weeks Call your doctor if your incision/area has: Continuous Slow Oozing, Sudden Increased Bleeding, Increased Pain/ Swelling, Increased Redness, Foul Smelling Discharge, Swelling at the incision site Call your doctor if you observe: Fever of 101 or Higher, Shortness of breath, Dizziness, Fainting spells, Swelling in the ankles, Chest pain, Increased palpitations (irregular heartbeat), Calf discomfort Cleanse incision/area with: Soap & Water Home Medications: Medications to take at Discharge Aspirin [Aspirin, Baby] 81 mg PO DAILY@0800 #30 tab.chew 07/01/19 Atorvastatin Calcium 80 mg PO QHS #30 tab 07/01/19 Colchicine 0.3 mg PO DAILYCM #7 tab 07/01/19 Indomethacin [Indocin] 25 mg PO TIDCM #21 cap 07/01/19 Lisinopril [Zestril] 10 mg PO DAILY #30 tab 07/01/19 Loperamide [Imodium] 2 - 4 mg PO Q4H PRN PRN cap 07/01/19 Metoprolol Tartrate 25 mg PO BID #60 tab 07/01/19 Nitroglycerin (INPATIENT USE) [Nitrostat] 0.4 mg SUBLINGUAL Q5M PRN #1 bot 07/01/19 Ticagrelor [Brilinta] 90 mg PO BID #60 tab 07/01/19 Following Prescrptions Were Given to Patient: Aspirin [Aspirin, Baby] 81 mg PO DAILY@0800 #30 tab.chew Transmission Status: Received by [facility] #30 Atorvastatin Calcium 80 mg PO QHS #30 tab Transmission Status: Received by [facility] #30 Ticagrelor [Brilinta] 90 mg PO BID #60 tab Transmission Status: Received by [facility] #30 Colchicine 0.3 mg PO DAILYCM #7 tab Transmission Status: Received by [facility] #30 Indomethacin [Indocin] 25 mg PO TIDCM #21 cap Transmission Status: Received by [facility] #30 Metoprolol Tartrate 25 mg PO BID #60 tab Transmission Status: Received by [facility] #30 Nitroglycerin (INPATIENT USE) [Nitrostat] 0.4 mg SUBLINGUAL Q5M PRN #1 bot PRN Reason: Chest Pain Transmission Status: Received by [facility] #30 Lisinopril [Zestril] 10 mg PO DAILY #30 tab Transmission Status: Received by [facility] #30 Other Amb Orders: Phase II, Outpatient Cardiac Rehab Location: None Selected Primary Care Physician: Aftab Hillman MD [Primary Care Provider] - Please follow up with your Primary Care Physician in: 5-7 days Please Follow Up With: Erasto Vuong MD When: 2 weeks Patient Instructions: Pericarditis Minutes spent on discharge:: 35 Patient Condition:: Good Medical Necessity - Tobacco Use Smoking Status: Never smoker Tobacco Use: Non-smoker Meaningful Use Info Meaningful Use Diagnoses (Choose all that apply): AMI - AMI Aspirin given w/in 24hrs of arrival?: Yes ASA at discharge?: Yes Statins at discharge?: Yes Juan Luis/ARB at discharge?: Yes Beta Sarika at discharge?: Yes Done w/ Acute OH measure.: Yes Documented LVEF (%): 50 - EF is 50-55% Code Visit Inpatient E&M: 52517 Disch Hosp
--- NOTE | 2019-07-01 16:43 | NURSING ---
Reviewed and agreed on all charting with Christina Duggan RN
[2019-07-02 12:35] LABS: Pathologist Review Reviewed
== END 2019-07-01 16:35 | disposition home or self-care (01) | DRG 247 ==
LOC: ED 20:15 → ICU 20:26 → PCU 06-29 15:12
PROVIDERS: Internal Medicine; Admitting Provider Hospitalist; Emergency Provider Emergency Medicine; Family Provider Family Medicine; PCP Family Medicine; Referring Provider Internal Medicine Cardiovascular Disease; Visit Provider Internal Medicine
DX: I21.19 ST elevation (STEMI) myocardial infarction involving other coronary artery of inferior wall (principal); K52.1 Toxic gastroenteritis and colitis; I31.9 Disease of pericardium, unspecified; I10 Essential (primary) hypertension; E78.5 Hyperlipidemia, unspecified; T50.4X5A Adverse effect of drugs affecting uric acid metabolism, initial encounter; T44.7X5A Adverse effect of beta-adrenoreceptor antagonists, initial encounter; I25.10 Atherosclerotic heart disease of native coronary artery without angina pectoris
CPT/HCPCS: 36415; 71045; 80048; 80053; 80061; 82962; 83735; 84484; 85025; 85347; 85610; 85730; 92941; 93005; 93306; 93458; 97802; 99152; 99153; 99285; C1760; J7030; J7040; Q9957; Q9967; A4216; C1725; C1769; C1874; C1887; C9606; J2405

== ENCOUNTER → 2019-07-12 07:58 | Outpatient (CLI) | payer OTHER, MEDICARE, SELFPAY ==
[2019-06-27 21:54] VITALS: BMI 30.5
[2019-06-28 07:58] VITALS: BMI 29.8
--- NOTE | 2019-07-12 08:11 | CR.HP_ITS ---
CR - History & Physical - General Arrival date:: 07/12/19 Arrival time:: 08:12 Date of Referral:: 06/28/19 Date of CR Evaluation:: 07/12/19 Referring Physician: Dr. Nikko Vuong Primary Diagnosis: AMI, PCI with Stent - History of Present Cardiac Event Onset Date: Enter Onset Date of cardiac illnesses in Comment field below Current stable Angina Pectoris:: No Acute Myocardial Infarction within 12 months:: Yes Coronary Artery Bypass Graft:: No Heart valve replacement or repair:: No PTCA or coronary stenting:: Yes - 06/27/19 Heart or Heart-Lung Transplant:: No Heart Failure EF <35%:: No Type of Symptoms:: chest pain Interventions with present event:: PCI, echo Were there any complications?: pericarditis - Medications Home Medications: Ambulatory Orders Medication Instructions Recorded Aspirin [Aspirin, Baby] 81 mg PO DAILY@0800 #30 tab.chew 07/01/19 Atorvastatin Calcium 80 mg PO QHS #30 tab 07/01/19 Colchicine 0.3 mg PO DAILYCM #7 tab 07/01/19 Indomethacin [Indocin] 25 mg PO TIDCM #21 cap 07/01/19 Lisinopril [Zestril] 10 mg PO DAILY #30 tab 07/01/19 Loperamide [Imodium] 2 - 4 mg PO Q4H PRN PRN cap 07/01/19 Metoprolol Tartrate 25 mg PO BID #60 tab 07/01/19 Nitroglycerin (INPATIENT USE) 0.4 mg SUBLINGUAL Q5M PRN #1 bot 07/01/19 [Nitrostat] Ticagrelor [Brilinta] 90 mg PO BID #60 tab 07/01/19 - Allergies Allergies/Adverse Reactions: Allergies No Known Allergies Allergy (Verified 06/27/19 19:58) - Sleep Disorder Evaluation Hx of Sleep Apnea: No Do you snore loudly (louder than talking or can be heard through closed doors)?: No Do you often feel tired/ fatigued/ sleepy during daytime?: Yes Has anyone observed you stop breathing during sleep?: No History of Hypertension (for STOP score): No STOP Results: Negative Advanced Directives - Advanced Directives Power of Quantitative Manager: No Living Will: No Advance Directives Information Provided: Yes Advance Directives on File: No DNR Order?:: No Past Medical History - Past Medical Illness Medical History: Past Medical History (This Medical Record has been edited. Action required.) Arteriosclerosis of coronary artery in patient with history of myocardial infarction (Chronic) Onset Date: 06/28/19 I25.10, I25.2 Denies any previous medical history - Past Surgical History Surgical History: Past Surgical History (This Medical Record has been edited. Action required.) Stented coronary artery (Chronic) Onset Date: 06/28/19 Z95.5 Single vessel CAD of the distal OM#1 (very small, tortuous vessel) Successful PTCA/HARSHA distal OM#1 with as 2.25 x 12 Promus Synergy, 100%-->0%, no dissection. Unfortunate plaque shift down tiny inferior branch of OM#1, no additional PCI attempted of this branch. Surgical History: cholecystectomy, tonsillectomy Social History - Smoking History Smoking Status: Never smoker Hx Tobacco Use: No Hx Smoking Exposure: No - Alcohol Use Alcohol Usage: Yes - socially - Substance Abuse Hx Substance Use: No - Occupation Occupation (List type of work in comments):: Employed Hours worked per day:: 8 Returned to work on:: 07/12/19 - Hobbies, Recreation, Social Activities Hobbies: Other - gardening, camping Social Environment - Status Marital Status: - Current Living Arrangements Living Environment:: Spouse - Children How many children do you have?: 3 Do any of your children live nearby?: Yes - Safety Do you feel safe in your surroundings?: Yes - Assistance Do you need any assistance at home?: no Review of Systems - Review of Systems Hints: Right click = Denies (Slash). Left click = Reports ([place]) Review of Present Symptoms: Reports: Shortness of Breath with Exertion - sl, but was rushing, Fatigue, Appetite - Special Diet - cardiac, Sleep - Normal. Denies: Shortness of Breath at Rest, PVD, Operative Discomfort, Angina, Wound Healing, Dizziness/Lightheadedness, Heart Arrhythmia/Irregularities, Appetite - Normal - decreased, Sexual Changes - Pain Is Patient Pain Free?: Yes Risk Factor Assessment - Vital Signs Pulse Ox: 96 Blood Pressure: 120/80 - Pulse Pulse Rate: 71 Pulse Rhythm: Regular - Blood Cholesterol/Lipids Total Cholesterol (mg/dL) Goal = less than 200 mg/dL: 150 HDL Cholesterol (mg/dL) Goal = less than 40 mg/dL: 61 LDL Cholesterol (mg/dL) Goal = less than 70 mg/dL: 127 Triglycerides (mg/dL) Goal = less than 150 mg/dL: 118 - Diabetes Nutrition Referral for Diabetes: No - Obesity Height: 5 ft 6 in Weight:: 190 lb Weight in Pounds: 190.0 lbs Body Mass Index (BMI): 30.7 Desired Body Weight: 165 Realistic Weight Goal (Loss of 1-2 lbs/week): 170 Nutritional Referral for Obesity: Yes - Physical Inactivity Physical Inactivity: None - Risk Stratification Risk Guidelines: Lowest Risk: Risk Factor for Smoking, Risk Factor for Diabetes, Risk Factor for Hypertension, Moderate Risk: Risk Factor for Dyslipidemia, Risk Factor for Obesity, Risk Factor for Sedentary Lifestyle, Risk Factor for De pression - For Smoking Smoking Risk Guidelines: Smoking Low Risk: None or quit greater than 6 months ago. Smoking Moderate Risk: Smoker or quit 6 months or less ago. Smoking High Risk: Smoker - For Dyslipidemia Dyslipidemia Risk Guidelines: Low Risk: Moderate Risk: High Risk: 15-25% fat 25.1-29% fat >/= 30% fat. <7% sat fat 7-9% sat fat >9% sat fat. <150 mg chol 150-299 mg chol >/= 300 mg chol. LDL <100 LDL 100-129 LDL >/= 130. Chol/HDL ratio <5.0 Chol/HDL ratio 5.0-6.0 Chol/HDL ratio >6.0. Triglycerides <100 Triglycerides 100- 149 Triglycerides >/= 150 - For Diabetes Mellitus Diabetes Risk Guidelines: Diabetes Low Risk: HgA1c <6.5% and/or FBG <120. Diabetes Moderate Risk: HgA1c 6.6-7.9% and/or FBG 120-180. Diabetes High Risk: HgA1c >/= 8% and/or FBG >180 - For Obesity/Overweight Obesity/Overweight Risk Guidelines: Obesity Low Risk: BMI <25.0. Obesity Moderate Risk: BMI 25-29.9. Obesity High Risk: BMI >/= 30.0 - For Hypertension Hypertension Risk Guidelines: Hypertension Low Risk: Systolic <120 and Diastolic <80. Hypertension Moderate Risk: Systolic 120-139 and Diastolic 80-89. Hypertension High Risk: Systolic >/= 140 and Diastolic >/= 90 - For Sedentary Lifestyle Sedentary Lifestyle Risk Guidelines: Sedentary Lifestyle Low Risk: >/= 1,500 kcal/week. Sedentary Lifestyle Moderate Risk: 700-1,499 kcal/week. Sedentary Lifestyle High Risk: < 700 kcal/week - For Depression Depression Risk Guidelines: Depression Low Risk: Not clinically depressed. Depression Moderate Risk: Mildly depressed. Depression High Risk: Clinically depressed Motivation - Motivation to Participate On a scale of 1 to 10, how prepared are you to commit to attending program?: 10
--- NOTE | 2019-07-12 08:11 | PCM.CR.ITP ---
General Information - General Information Admitting Diagnosis: AMI, PCI with stent - Education/Goals Barriers to Learning: Vision Impairment - wears glasses Individual Counseling: Initial Assessment: Abnormal Cholesterol Levels, Overweight/Obesity, Sedentary Lifestyle, Stress Cardiac Rehabilitation Goals: 1. Maintain the individual as the primary focus of care. 2. To improve the patient's quality of life. 3. Identification of cardiac risk factors and provide cardiac risk factor management. 4. Enhance the psychosocial status of the patient. 5. Reconditioning enough to allow the patient to resume customary activities. 6. Control symptoms of cardiac disease Scale for measuring improvement of personal goals: Enter appropriate number in Comments. 2 = Unchanged. 3 = Slightly Better. 4 = Moderate Improvement. 5 = Met my Goal Personal Goals: Initial Assessment: Improve management of stress and emotions, Improve energy level, Participate in home exercise program, Get back to work, or to resume activities faster, Improve knowledge of cardiac disease, Improve muscle strength and endurance, Improve diet and eating habits (eat healthier), Control risk factors (learn risk factor modification) Exercise - Initial Assessment - Visit Date of Eval: 07/12/19 - Stages of Change Stages of Change:: Action - Physician Prescribed Exercise Modalities: Treadmill, Biodyne, Rower, Airdyne, NuStep, SciFit Frequency (days/week): 3x/week for 12 weeks [36 sessions] Duration (Minutes):: 35-40 Intensity: 60-80% age predicted maximum heart rate reserve METs - Progression: 0.5-1.0 MET, RPE 11-14 WEEK: 0.5-1.0 Target Heart Rate:: 101-132 - Hypertension Do any of the following apply?: No - Intervention Home Exercise/Activity Goal:: Moderate Exercise 30 min/day x 5 days/wk - Education Goals:: Warm-up, RPE NOELLE Scale, S/S, Safe Exercise, Self-Monitoring - Exercise Program Goals Exercise Program Goals: Aerobic Activity >30 min Nutrition - Initial Assessment - Program Goals Nutrition Program Goals: LDL <70. Total Cholesterol <200. HDL >45. Triglycerides <150. HgbA1C <7%. BMI <25 - Visit Date of Assessment:: 07/12/19 - Stages of Change Stages of Change:: Action - Lipids Total Cholesterol (mg/dL) Goal = less than 200 mg/dL: 150 HDL Cholesterol (mg/dL) Goal = less than 45 mg/dL: 61 LDL Cholesterol (mg/dL) Goal = less than 70 mg/dL: 127 Triglycerides (mg/dL) Goal = less than 150 mg/dL: 118 Lipid Medication: yes - Diabetes Diabetes:: No - Weight Management Height: 5 ft 6 in Weight:: 190 lb Weight Goal (kg):: 165 lb Body Fat %:: 30.5 Goal % Body Fat:: 25 Total Score:: 4 - Intervention Referral to dietitian:: Yes Referral to Diabetic Clinic:: No Will attend diet classes:: Yes - Education Gave educational materials for:: Healthy eating Tobacco - Initial Assessment - Program Goals Tobacco Program Goals: Complete smoking cessation. Attend education classes. Improve Knowledge Test score - Stage of Change Stages of Change:: Maintenance - Learning Barriers Learning Barriers: Ready to Learn Total Score:: 17 - Family Support Do you have family support?: Yes - Tobacco Use Tobacco Use: Non-smoker Do you use smokeless tobacco?: No - Intervention Smoking Cessation Referral:: No Individual Education/Counseling:: No Education Schedule Given:: Yes - Education Attended class for:: Treating Heart Disease, How The Heart Works, What it means to have Heart Disease, How Coronary Artery Disease is Diagnosed, Heart Procedures, What Heart Medications Do, Risk Factors & Modifications, Living an Active Life, Nutrition, Emotions & Heart Disease, Stress Management & Relaxation, Sleep Disorders & Heart Disease Psychosocial - Initial Assess - Target Goals Target Goals: Assess presence or absence of depression. Using a valid screening tool, maximizes coping skills. Positive support system - Stages of Change Stages of Change:: Action - Psychosocial Test Tool Used:: HANDS Depression Questionnaire Self-reported stress:: yes Tests Completed: SF - 36 survey completed, Mood Scale Test Total Mood Screening Score:: 15 Self-Efficacy Score:: 7 - Intervention PS - Interventions: Yes Referral to Physician, Yes Attend Stress Management Classes, Yes Uses Stress Management Skills, No Referral to Mental Health, No Referral to [facility] Case Management - Education Gave educational materials for:: Coping techniques, Signs & symptoms of depression, Stress management, Relaxation techniques - Patient/Program Goal Preventative Medication(s):: Aspirin, JESSICA inhibitor, Clopidogrel, Beta apple, Statin/lipid - Assistive Devices Assistive Devices:: None Fall Risk Assessed:: Yes Patient Health Questionnaire Initial Assessment 1. Little interest or pleasure in doing things: Nearly every day 2. Feeling down, depressed, or hopeless: More than half the days 3. Trouble falling or staying asleep, or sleeping too much: More than half the days 4. Feeling tired or having little energy: Nearly every day 5. Poor appetite or overeating: Nearly every day 6. Feeling bad about yourself -- or that you are a failure or have let yourself or your family down: Several days 7. Trouble concentrating on things, such as reading the newspaper or watching television: Several days 8. Moving or speaking so slowly that other people could have noticed. Or the opposite - being so fidgety or restless that you have been moving around a lot more than usual: Not at all 9. Thoughts that you would be better off , or of hurting yourself in some way: Not at all How difficult have these problems made it for you to do your work, take care of things at home, or get along with other people?: Somewhat difficult Total Score: 15 RICARDO-Q SV Test - Statements CAD is a disease of the arteries in the heart: False Examples of risk factors for heart disease: True Angina is chest pain or discomfort: False The benefits of resistance training include: True Eating more meat and dairy products: False Anti-platelet medications such as aspirin are important: True The only effective way to manage stress: False An exercise warm-up slowly increases heart rate: False Prepared, processed foods usually have high sodium: True Depression is common after a heart attack: True The statin medications lower cholesterol: True To control blood pressure, lower the amount of sodium: I Don't Know If someone gets chest discomfort during walking: False Transfats are partially hydrogenated vegetable oils: True Sleep apnea that is not treated increases the risk: False To control cholesterol, one should become a vegetarian: False Someone knows if he/she is exercising at the right level: True Diabetes cannot be prevented with exercise & health eating: False Stress is a large risk for heart attack: True A diet that can help lower blood pressure is rich in: True - Total Score Total Correct Responses: 17 Self-Efficacy Initial Assessment We would like to know how confident you are in doing certain activities. Please select your confidence level for:: Select your confidence level for the following using the scale 1-10 where 1 is not at all confident and 10 is totally confident. Your score is the average of all 6 responses. Fatigue: How confident are you that you can keep the fatigue caused by your disease from interfering with the things you want to do? Select Number: 7 Physical Discomfort or Pain: How confident are you that you can keep the physical discomfort or pain of your disease from interfering with the things you want to do? Select Number: 7 Emotional Distress: How confident are you that you can keep the emotional distress caused by your disease from interfering with the things you want to do? Select Number: 5 Other Symptoms or Health Problems: How confident are you that you can keep other symptoms or health problems from interfering with the things you want to do? Select Number: 7 Different Tasks and Activities: How confident are you that you can do the different tasks and activities needed to manage your health condition so as to reduce your need to see a doctor? Select Number: 7 Medication: How confident are you that you can do things other than just taking medication to reduce how much your illness affects your everyday life? Select Number: 9 Total Score:: 7
[2019-07-12 08:43] VITALS: BMI 30.7
[2019-07-12 09:25] VITALS: BP 120/80; PULSE 71; O2SAT 96
== END ==
PROVIDERS: Family Provider Family Medicine; PCP Family Medicine; Referring Provider Internal Medicine Cardiovascular Disease; Visit Provider Internal Medicine Cardiovascular Disease
DX: I25.10 Atherosclerotic heart disease of native coronary artery without angina pectoris (principal); I25.2 Old myocardial infarction; Z95.5 Presence of coronary angioplasty implant and graft; Z79.82 Long term (current) use of aspirin; Z79.899 Other long term (current) drug therapy

== ENCOUNTER 2019-07-27 08:00 | Outpatient (RCR) | payer OTHER, MEDICARE, SELFPAY ==
[2019-06-28 07:58] VITALS: BMI 29.8
[2019-07-12 08:43] VITALS: BMI 30.7
== END 2019-07-27 23:59 ==
LOC: CR 08:00
PROVIDERS: PCP Family Medicine; Referring Provider Internal Medicine Cardiovascular Disease; Visit Provider Internal Medicine Cardiovascular Disease
DX: I25.10 Atherosclerotic heart disease of native coronary artery without angina pectoris (principal); I25.2 Old myocardial infarction; I21.3 ST elevation (STEMI) myocardial infarction of unspecified site; Z95.5 Presence of coronary angioplasty implant and graft
CPT/HCPCS: 93798

== ENCOUNTER 2019-08-24 08:00 | Outpatient (RCR) | payer OTHER, MEDICARE, SELFPAY ==
[2019-06-28 07:58] VITALS: BMI 29.8
[2019-07-13 10:05] VITALS: BMI 28.7
--- NOTE | 2019-08-13 09:04 | PCM.CR.ITP ---
Diagnosis - General Information Admitting Diagnosis: PCI w/stent Personal Learning Style:: Audio/Visual, Written Barriers to Learning: No Barriers Stage of change r/t lifestyle modifications:: Action Gave educational material for:: Treating Heart Disease, Emotions & Heart Disease, Stress Management & Relaxation, Sleep Disorders & Heart Disease, How The Heart Works, What it means to have Heart Disease, How Coronary Artery Disease is Diagnosed, Heart Procedures, What Heart Medications Do, Risk Factors & Modifications, Living an Active Life, Nutrition - Education/Goals Individual Counseling: Initial Assessment: Abnormal Cholesterol Levels, High Blood Pressure, Overweight/Obesity Cardiac Rehabilitation Goals: 1. Maintain the individual as the primary focus of care. 2. To improve the patient's quality of life. 3. Identification of cardiac risk factors and provide cardiac risk factor management. 4. Enhance the psychosocial status of the patient. 5. Reconditioning enough to allow the patient to resume customary activities. 6. Control symptoms of cardiac disease Personal Goals: Initial Assessment: Improve management of stress and emotions, Improve energy level, Participate in home exercise program, Get back to work, or to resume activities faster, Improve knowledge of cardiac disease, Improve muscle strength and endurance, Improve diet and eating habits (eat healthier), Control risk factors (learn risk factor modification) Scale for measuring improvement of personal goals: Enter appropriate number in Comments. 2 = Unchanged. 3 = Slightly Better. 4 = Moderate Improvement. 5 = Met my Goal - Diagnosis & Disease Process Outcomes/Goals: Pt IDs own risk factors & lifestyle modifications by Session 10, Verbalizes symptoms of angina & response by session 3., Pt independently manages Plan/Interventions: Assist Pt to ID & engage in lifestyle modification to reduce CVD risk, Instruct on individual risk factors, Review symptoms of angina & emergency actions, Review secondary diagnosis & identify educational needs. 30 day Reassessments:: Progressing - Safety Referral to Physical Therapy: No Referral to [facility] Case Management: No Fall Risk Assessed:: Yes Assistive Devices:: None Exercise - 30-day Assessment - Visit Date of Eval: 08/13/19 Session #:: 14 - Physician Prescribed Exercise Modalities: Treadmill, Airdyne, NuStep Frequency: 3x/week for 12 weeks [36 sessions] Intensity: 60-80% of age predicted maximum heart rate reserve Current METSs:: 5 INCREASE FROM 3.5 Target Heart Rate:: 101-132 Current RPE:: 11-12 Maximum Excercise HR:: 138 Resting Blood Pressure: 112/60 Maximum Exercise Blood Pressure: 132/68 EKG Type: NSR to sinus tahcycardia with rare PVCs. Current Physical Activity or Exercising minutes: physically active at home. - Outcomes & Goals Goals:: Verbalizes understanding of THR, RPE & goal METS by session 6, Documents in home exercise log/reports 30 min aerobic 5 day/wk by DC, Demonstrates accurate pulse taking by DC - Intervention & Plan Exercise Program Goals: Instruct on personal THR & RPE, Instruct on MET level & personal MET goal, Show patient to take own pulse /validate performance until accurate, Instruct on home exercise - 30-day Reassessments 30 day Reassessments:: Progressing - Physical Activity Home Exercise Physical Activity - Home Exercise: Safe Exercise, Warm-up, Self-monitoring, Cool-Down, Home Exercise > 30 min Daily - Outcomes & Goals Outcomes/Goals: Demonstrates correct Warm-up/exercise Cool-Down (S3) if = 2.5 METs, Verbalizes symptoms of exercise intolerance by Session 3 (S3), Demonstrate safe equipment use (S3) & follows exercise prescrition (6), Other: See below - Intervention & Plan Plan/Intervention: Instruct warm-up & cool-down if exercising at > 2 METs, Instruct on symptoms of exercise intolerance & actions to take, Instruct & monitor on saf, Assess intial functional capacity & safety risk - 30-day Reassessments 30 day Reassessments:: Progressing Nutrition - 30-Day Assessment - Program Goals Nutrition Program Goals: LDL <100 optimal. 100 - 129 Near optimal. 130 - 159 Borderline High. 160 - 189 High. Total Cholesterol <200 desirable. 200 - 239 Borderline High. >/= 240 High. HDL < 40 Low >/=60 High. Triglycerides <150 desirable. <199 optimal. VlDL 5 - 40. HgbA1C <7%. BMI <25 Patient has diagnosis of Hyperlipidemia (ICD E78)?: Yes - Visit Date of Assessment:: 08/13/19 Session #:: 13 - Cholesterol/Lipids Triglycerides (mg/dL): 118 Total Cholesterol (mg/dL): 212 LDL Cholesterol (mg/dL): 127 HDL Cholesterol (mg/dL): 61 Determine presence & major risk factors that modify LDL goal: Hypertension or hypertensive medication, Age men > 45 years; women >/= 55 years Outcomes/Goals: Pt IDs own risk factors & lifestyle modifications by Session 10, Verbalizes symptoms of angina & response by session 3., Pt independently manages Intervention/Plan: Instruct on personal lipid levels & lipid goals/NCEP guidelines, Instruct on cholesterol Referral to dietitian:: Yes 30-day Reassessments:: Progressing - Diabetes (Other Core Measures) Diabetes Type: Not Applicable - Weight Mgt (Other Care) Not Applicable: Yes Height: 5 ft 6 in - Weight:: 175 lb 11.2 oz BMI: 28.3 Diagnosis Overweight/Obesity BMI> 30% ICD-10 E66: No Diagnosis High BMI/Morbid Obesity BMI> 35% ICD-10 Z68: No Outcomes/Goals: Pt sets, maintains & shows weight loss goal & trend during rehab Intervention/Plan: Instruct on ideal BMI & set weight loss goal w/patient, Assist pt to ID & incorporate diet changes for weight loss by S9, Encourage goal of using 250-300dcal per session for weight loss 30 day Reassessments:: Progressing - Healthy Eating Habits Will attend diet classes:: Yes Outcomes/Goals:: Consume diet rich in vegs,fruits,whole grain/high fiber,fish,lean meat, Limit sat/trans fats,cholesterol & added salts & sugars Intervention/Plan:: Assess current eating habits 30-day Reassessments:: Progressing - Education Gave educational materials for:: Healthy eating Medical- 30-Day Assessment - Visit Date of Eval: 08/13/19 Session #:: 13 - Medication Compliance Preventative Medication(s):: Aspirin, Ticagrelor/P2Y12 inhibitor, Statin/lipid H/O mental health issues: depression, anxiety, or addiction?: No Doesn?t believe in the benefits of treatment?: No Believes medications are unnecessary or harmful?: No Has a concern about medication side effects?: No Expresses concern over the cost of medications?: No Outcomes/Goals: Verbalizes medications,desired effect & common side effects @ DC, Pt self-reports following medication regimen, Keeps card in wallet w/medications listed by DC Interventions/plans: Instruct on medication effects & side effects, Review medication list w/patient every two weeks, Instruct importance of taking meds as ordered & assist problem solving 30-day Reassessments:: Progressing - Hypertension Hypertension Diagnosis:: Hypertension ICD-10 I10 Resting Blood Pressure:: 112/60 [place] [employer] Hypertension Guidelines: [place] [employer] Hypertension Guidelines. Normal BP Less than 120/80. Elevated BP 120/80. Hypertension Stage 1: BP 130-139/80-89. Hypertesnion Stage 2: BP 140 or higher/90 or higher. Hypertension Crisis: BP higher than 180/120 Peak Exercise Blood Pressure:: 132/68 Outcomes/Goals: Able to verbalize/achieve optimal blood pressure <130/80, Incorporates diet changes & exercise for blood pressure control by DC 30 day Reassessments:: Progressing - Tobacco Cessation Referral Smoking Cessation Referral:: No Education Schedule Given:: Yes Psychosocial - 30-Day Assess - VIsit Date of Eval: 08/13/19 Session #:: 13 Not Applicable: Yes History of previous Mental disease:: No - Target Goals Target Goals: Assess presence or absence of depression. Using a valid screening tool, maximizes coping skills. Positive support system - Psychosocial Test Tool Used:: Giovany Mcneil QOL Cardiac, PHQ-9 Questionnaire phq-9 Severity: Severity. 1-4 Minimal Depression. 5-9 Mild Depression. 10-14 Moderate Depression. 15-19 Moderately Sever Depression. 20-27 Severe Depression. Rule: - Referral to Behavioral Health PS - Interventions: Yes Attend Stress Management Classes, No Referral to Behavioral Health if PHQ-9 score >9:, No Referral to [facility], No Referral to Physician if PHQ-9 if score is 5-9: - Outcomes/Goals: See list Psychosocial Outcomes/Goals:: ID's personal stressors & 2 strategies to manage stress by discharge - Intervention/Plan: See List Interventions/Plan:: Assess stressors,coping strategies & signs of derpression on admission, Instruct/assist pt to develop coping & personal stress Mgt strategies, Instruct patient to recognize signs & symptoms of depression, Instruct patient to recog - 30-day Reassessments: 30 day Reassessments:: Progressing Patient Health Questionnaire 30-Day Re-eval Assessment 1. Little interest or pleasure in doing things: Several days 2. Feeling down, depressed, or hopeless: Not at all 3. Trouble falling or staying asleep, or sleeping too much: Several days 4. Feeling tired or having little energy: Several days 5. Poor appetite or overeating: Several days 6. Feeling bad about yourself -- or that you are a failure or have let yourself or your family down: Not at all 7. Trouble concentrating on things, such as reading the newspaper or watching television: Not at all 8. Moving or speaking so slowly that other people could have noticed. Or the opposite - being so fidgety or restless that you have been moving around a lot more than usual: Not at all 9. Thoughts that you would be better off , or of hurting yourself in some way: Not at all How difficult have these problems made it for you to do your work, take care of things at home, or get along with other people?: Not difficult at all Total Score: 4 Self-Efficacy 30-Day Re-eval Assessment We would like to know how confident you are in doing certain activities. Please select your confidence level for:: Select your confidence level for the following using the scale 1-10 where 1 is not at all confident and 10 is totally confident. Your score is the average of all 6 responses. Fatigue: How confident are you that you can keep the fatigue caused by your disease from interfering with the things you want to do? Select Number: 8 Physical Discomfort or Pain: How confident are you that you can keep the physical discomfort or pain of your disease from interfering with the things you want to do? Select Number: 8 Emotional Distress: How confident are you that you can keep the emotional distress caused by your disease from interfering with the things you want to do? Select Number: 7 Other Symptoms or Health Problems: How confident are you that you can keep other symptoms or health problems from interfering with the things you want to do? Select Number: 9 Different Tasks and Activities: How confident are you that you can do the different tasks and activities needed to manage your health condition so as to reduce your need to see a doctor? Select Number: 10 Medication: How confident are you that you can do things other than just taking medication to reduce how much your illness affects your everyday life? Select Number: 10 Total Score:: 8
[2019-08-13 09:48] VITALS: BP 112/60; BP 132/68; BMI 28.3
== END 2019-08-25 23:59 ==
LOC: CR 08:00
PROVIDERS: PCP Family Medicine; Referring Provider Internal Medicine Cardiovascular Disease; Visit Provider Internal Medicine Cardiovascular Disease
DX: I25.10 Atherosclerotic heart disease of native coronary artery without angina pectoris (principal); I25.2 Old myocardial infarction; I21.3 ST elevation (STEMI) myocardial infarction of unspecified site; Z95.5 Presence of coronary angioplasty implant and graft
CPT/HCPCS: 93798

== ENCOUNTER 2019-09-04 08:56 | Outpatient (RCR) | payer OTHER, MEDICARE, SELFPAY ==
[2019-07-13 10:05] VITALS: BMI 28.7
[2019-08-13 09:48] VITALS: BMI 28.3
== END 2019-09-04 23:59 | disposition home or self-care (01) ==
LOC: NS 08:56
PROVIDERS: PCP Family Medicine; Visit Provider Internal Medicine Cardiovascular Disease
DX: Z71.3 Dietary counseling and surveillance (principal); E78.5 Hyperlipidemia, unspecified; I10 Essential (primary) hypertension; I25.10 Atherosclerotic heart disease of native coronary artery without angina pectoris; I25.2 Old myocardial infarction
CPT/HCPCS: 97802

== ENCOUNTER → 2019-09-04 10:33 | Outpatient (CLI) | payer OTHER, MEDICARE, SELFPAY ==
[2019-07-13 10:05] VITALS: BMI 28.7
[2019-08-13 09:48] VITALS: BMI 28.3
[2019-09-04 11:36] LABS: AST(SGOT) 31 U/L (15-37); Alanine Aminotransfer ALT/SGPT 38 U/L (13-56); Albumin, Serum 3.5 g/dL (3.2-5.0); Alkaline Phosphatase 110 U/L (45-117); Cholesterol 123 mg/dL (200); Globulin 3.8 g/dL (2.2-4.2); High Density Lipoprotein 50 mg/dL; Protein, Total 7.3 g/dL (6.4-8.2); Triglycerides 67 mg/dL; Very Low Density Lipoprotein 13 mg/dL (5-40)
== END ==
PROVIDERS: PCP Family Medicine; Referring Provider Internal Medicine Cardiovascular Disease; Visit Provider Internal Medicine Cardiovascular Disease
DX: E78.00 Pure hypercholesterolemia, unspecified (principal)
CPT/HCPCS: 36415; 80061; 80076

== ENCOUNTER 2019-09-24 08:00 | Outpatient (RCR) | payer OTHER, MEDICARE, SELFPAY ==
[2019-07-13 10:05] VITALS: BMI 28.7
[2019-08-13 09:48] VITALS: BMI 28.3
[2019-08-26 00:53] VITALS: BP 112/60; BP 132/68
--- NOTE | 2019-09-10 06:48 | PCM.CR.ITP ---
Diagnosis - General Information Admitting Diagnosis: S/P PCI with coronary stenting Personal Learning Style:: Audio/Visual, Written Barriers to Learning: No Barriers Stage of change r/t lifestyle modifications:: Action Gave educational material for:: Treating Heart Disease, Emotions & Heart Disease, Stress Management & Relaxation, Sleep Disorders & Heart Disease, How The Heart Works, What it means to have Heart Disease, How Coronary Artery Disease is Diagnosed, Heart Procedures, What Heart Medications Do, Risk Factors & Modifications, Living an Active Life, Nutrition - Education/Goals Individual Counseling: Initial Assessment: Abnormal Cholesterol Levels, High Blood Pressure, Overweight/Obesity Cardiac Rehabilitation Goals: 1. Maintain the individual as the primary focus of care. 2. To improve the patient's quality of life. 3. Identification of cardiac risk factors and provide cardiac risk factor management. 4. Enhance the psychosocial status of the patient. 5. Reconditioning enough to allow the patient to resume customary activities. 6. Control symptoms of cardiac disease Personal Goals: Initial Assessment: Improve management of stress and emotions - 4, Improve energy level - 4, Participate in home exercise program - 4, Get back to work, or to resume activities faster - 4, Improve knowledge of cardiac disease - 4, Improve muscle strength and endurance - 4, Improve diet and eating habits (eat healthier) - 4, Control risk factors (learn risk factor modification) - 4 Scale for measuring improvement of personal goals: Enter appropriate number in Comments. 2 = Unchanged. 3 = Slightly Better. 4 = Moderate Improvement. 5 = Met my Goal - Diagnosis & Disease Process Outcomes/Goals: Pt IDs own risk factors & lifestyle modifications by Session 10, Verbalizes symptoms of angina & response by session 3., Pt independently manages Plan/Interventions: Assist Pt to ID & engage in lifestyle modification to reduce CVD risk, Instruct on individual risk factors, Review symptoms of angina & emergency actions, Review secondary diagnosis & identify educational needs. 30 day Reassessments:: Progressing 30 day Reassessments:: Progressing - Safety Referral to Physical Therapy: No Referral to [facility] Case Management: No Fall Risk Assessed:: Yes Assistive Devices:: None Exercise - 60-day Assessment - Visit Date of Eval: 09/10/19 Session #:: 24 - Physician Prescribed Exercise Modalities: Treadmill, Airdyne, NuStep Frequency: 3x/week for 12 weeks [36 sessions] Intensity: 60-80% of age predicted maximum heart rate reserve Current METSs:: 5.5 increase from 4.5 Target Heart Rate:: 101-132 Current RPE:: 11-12 Maximum Excercise HR:: 132 Resting Blood Pressure: 112/48 Maximum Exercise Blood Pressure: 140/82 EKG Type: NSR to sinus tachycardia with rare PVCs. - Outcomes & Goals Goals:: Verbalizes understanding of THR, RPE & goal METS by session 6, Documents in home exercise log/reports 30 min aerobic 5 day/wk by DC, Demonstrates accurate pulse taking by DC - Intervention & Plan Exercise Program Goals: Instruct on personal THR & RPE, Instruct on MET level & personal MET goal, Show patient to take own pulse /validate performance until accurate, Instruct on home exercise - 30-day Reassessments 30 day Reassessments:: Met - Physical Activity Home Exercise Physical Activity - Home Exercise: Safe Exercise, Warm-up, Self-monitoring, Cool-Down, Home Exercise > 30 min Daily, Sitting Time <3 hours/daily - Outcomes & Goals Outcomes/Goals: Demonstrates correct Warm-up/exercise Cool-Down (S3) if = 2.5 METs, Verbalizes symptoms of exercise intolerance by Session 3 (S3), Demonstrate safe equipment use (S3) & follows exercise prescrition (6) - Intervention & Plan Plan/Intervention: Instruct warm-up & cool-down if exercising at > 2 METs, Instruct on symptoms of exercise intolerance & actions to take, Instruct & monitor on saf, Assess intial functional capacity & safety risk - 30-day Reassessments 30 day Reassessments:: Met Nutrition - 60-Day Assessment - Program Goals Nutrition Program Goals: LDL <100 optimal. 100 - 129 Near optimal. 130 - 159 Borderline High. 160 - 189 High. Total Cholesterol <200 desirable. 200 - 239 Borderline High. >/= 240 High. HDL < 40 Low >/=60 High. Triglycerides <150 desirable. <199 optimal. VlDL 5 - 40. HgbA1C <7%. BMI <25 Patient has diagnosis of Hyperlipidemia (ICD E78)?: Yes - Visit Date of Assessment:: 09/10/19 Session #:: 24 - Cholesterol/Lipids Triglycerides (mg/dL): 118 - 06/27/2019 Total Cholesterol (mg/dL): 212 LDL Cholesterol (mg/dL): 127 HDL Cholesterol (mg/dL): 61 Determine presence & major risk factors that modify LDL goal: Hypertension or hypertensive medication, Age men > 45 years; women >/= 55 years Outcomes/Goals: Pt IDs own risk factors & lifestyle modifications by Session 10, Verbalizes symptoms of angina & response by session 3., Pt independently manages Intervention/Plan: Instruct on personal lipid levels & lipid goals/NCEP guidelines, Instruct on cholesterol Referral to dietitian:: No - Seen Dietitian on 09/04/2019 30-day Reassessments:: Progressing - Diabetes (Other Core Measures) Diabetes Type: Not Applicable - Weight Mgt (Other Care) Not Applicable: No Height: 5 ft 6 in Weight:: 176 lb - BMI decreased from 30.5 BMI: 28.4 Diagnosis Overweight/Obesity BMI> 30% ICD-10 E66: No Diagnosis High BMI/Morbid Obesity BMI> 35% ICD-10 Z68: No Outcomes/Goals: Pt sets, maintains & shows weight loss goal & trend during rehab Intervention/Plan: Instruct on ideal BMI & set weight loss goal w/patient, Assist pt to ID & incorporate diet changes for weight loss by S9, Encourage goal of using 250-300dcal per session for weight loss 30 day Reassessments:: Progressing - Healthy Eating Habits Will attend diet classes:: Yes Outcomes/Goals:: Consume diet rich in vegs,fruits,whole grain/high fiber,fish,lean meat, Limit sat/trans fats,cholesterol & added salts & sugars Intervention/Plan:: Assess current eating habits 30-day Reassessments:: Progressing - Education Gave educational materials for:: Healthy eating Medical- 60-Day Assessment - Visit Date of Eval: 09/10/19 Session #:: 24 - Medication Compliance Preventative Medication(s):: Aspirin, Ticagrelor/P2Y12 inhibitor, Statin/lipid, Beta apple H/O mental health issues: depression, anxiety, or addiction?: No Doesn?t believe in the benefits of treatment?: No Believes medications are unnecessary or harmful?: No Has a concern about medication side effects?: No Expresses concern over the cost of medications?: No Outcomes/Goals: Verbalizes medications,desired effect & common side effects @ DC, Pt self-reports following medication regimen, Keeps card in wallet w/medications listed by DC Interventions/plans: Instruct on medication effects & side effects, Review medication list w/patient every two weeks, Instruct importance of taking meds as ordered & assist problem solving 30-day Reassessments:: Progressing - Tobacco Use Tobacco Use: Non-smoker - Hypertension Hypertension Diagnosis:: Hypertension ICD-10 I10 Resting Blood Pressure:: 112/48 - controlled with medication [place] [employer] Hypertension Guidelines: [place] [employer] Hypertension Guidelines. Normal BP Less than 120/80. Elevated BP 120/80. Hypertension Stage 1: BP 130-139/80-89. Hypertesnion Stage 2: BP 140 or higher/90 or higher. Hypertension Crisis: BP higher than 180/120 Peak Exercise Blood Pressure:: 140/82 Outcomes/Goals: Able to verbalize/achieve optimal blood pressure <130/80, Incorporates diet changes & exercise for blood pressure control by DC Interventions/plan: Instruct on optimal blood pressure, hypertension & medications, Instruct on effects of sodium, alcohol, stress, exercise &hypertension 30 day Reassessments:: Progressing - Tobacco Cessation Referral Smoking Cessation Referral:: No Individual Education/Counseling:: No Education Schedule Given:: Yes Psychosocial - 60-Day Assess - VIsit Date of Eval: 09/10/19 Session #:: 24 Not Applicable: Yes History of previous Mental disease:: No - Target Goals Target Goals: Assess presence or absence of depression. Using a valid screening tool, maximizes coping skills. Positive support system - Psychosocial Test Tool Used:: PHQ-9 Questionnaire phq-9 Severity: Severity. 1-4 Minimal Depression. 5-9 Mild Depression. 10-14 Moderate Depression. 15-19 Moderately Sever Depression. 20-27 Severe Depression. Rule: - Referral to Behavioral Health PS - Interventions: Yes Attend Stress Management Classes, No Referral to Behavioral Health if PHQ-9 score >9:, No Referral to [facility], No Referral to Physician if PHQ-9 if score is 5-9: - Outcomes/Goals: See list Psychosocial Outcomes/Goals:: ID's personal stressors & 2 strategies to manage stress by discharge - Intervention/Plan: See List Interventions/Plan:: Assess stressors,coping strategies & signs of derpression on admission, Instruct/assist pt to develop coping & personal stress Mgt strategies, Instruct patient to recognize signs & symptoms of depression, Instruct patient to recog - 30-day Reassessments: 30 day Reassessments:: Progressing Patient Health Questionnaire 60-Day Re-eval Assessment 1. Little interest or pleasure in doing things: Not at all 2. Feeling down, depressed, or hopeless: Not at all 3. Trouble falling or staying asleep, or sleeping too much: Not at all 4. Feeling tired or having little energy: Not at all 5. Poor appetite or overeating: Not at all 6. Feeling bad about yourself -- or that you are a failure or have let yourself or your family down: Not at all 7. Trouble concentrating on things, such as reading the newspaper or watching television: Not at all 8. Moving or speaking so slowly that other people could have noticed. Or the opposite - being so fidgety or restless that you have been moving around a lot more than usual: Not at all 9. Thoughts that you would be better off , or of hurting yourself in some way: Not at all How difficult have these problems made it for you to do your work, take care of things at home, or get along with other people?: Not difficult at all Total Score: 0 Self-Efficacy 60-Day Re-eval Assessment We would like to know how confident you are in doing certain activities. Please select your confidence level for:: Select your confidence level for the following using the scale 1-10 where 1 is not at all confident and 10 is totally confident. Your score is the average of all 6 responses. Fatigue: How confident are you that you can keep the fatigue caused by your disease from interfering with the things you want to do? Select Number: 10 Physical Discomfort or Pain: How confident are you that you can keep the physical discomfort or pain of your disease from interfering with the things you want to do? Select Number: 10 Emotional Distress: How confident are you that you can keep the emotional distress caused by your disease from interfering with the things you want to do? Select Number: 10 Other Symptoms or Health Problems: How confident are you that you can keep other symptoms or health problems from interfering with the things you want to do? Select Number: 10 Different Tasks and Activities: How confident are you that you can do the different tasks and activities needed to manage your health condition so as to reduce your need to see a doctor? Select Number: 10 Medication: How confident are you that you can do things other than just taking medication to reduce how much your illness affects your everyday life? Select Number: 10 Total Score:: 10
[2019-09-10 06:56] VITALS: BP 112/48; BP 140/82; BMI 28.4
== END 2019-09-25 23:59 ==
LOC: CR 08:00
PROVIDERS: PCP Family Medicine; Referring Provider Internal Medicine Cardiovascular Disease; Visit Provider Internal Medicine Cardiovascular Disease
DX: I25.10 Atherosclerotic heart disease of native coronary artery without angina pectoris (principal); I25.2 Old myocardial infarction; I21.3 ST elevation (STEMI) myocardial infarction of unspecified site; Z95.5 Presence of coronary angioplasty implant and graft
CPT/HCPCS: 93798

== ENCOUNTER 2019-10-31 06:29 | Outpatient (RCR) | payer MEDICARE, SELFPAY ==
[2019-07-13 10:05] VITALS: BMI 28.7
[2019-09-10 06:56] VITALS: BMI 28.4
[2019-09-26 00:41] VITALS: BP 112/48; BP 140/82
--- NOTE | 2019-09-28 06:30 | PCM.CR.ITP ---
Exercise - Initial Assessment - Visit Date of Eval: 09/28/19 - Patient CR suspended due to COVID-19 and Cardiac Rehab closing for September 2019.
--- NOTE | 2019-10-26 09:29 | PCM.CR.ITP ---
Diagnosis - General Information Admitting Diagnosis: PCI with coronary stent Personal Learning Style:: Audio/Visual, Demonstration, Group, Individual Preference, Written Stage of change r/t lifestyle modifications:: Action Gave educational material for:: Treating Heart Disease, Emotions & Heart Disease, Stress Management & Relaxation, Sleep Disorders & Heart Disease, How The Heart Works, What it means to have Heart Disease, How Coronary Artery Disease is Diagnosed, Heart Procedures, What Heart Medications Do, Risk Factors & Modifications, Living an Active Life, Nutrition - Education/Goals Cardiac Rehabilitation Goals: 1. Maintain the individual as the primary focus of care. 2. To improve the patient's quality of life. 3. Identification of cardiac risk factors and provide cardiac risk factor management. 4. Enhance the psychosocial status of the patient. 5. Reconditioning enough to allow the patient to resume customary activities. 6. Control symptoms of cardiac disease Scale for measuring improvement of personal goals: Enter appropriate number in Comments. 2 = Unchanged. 3 = Slightly Better. 4 = Moderate Improvement. 5 = Met my Goal - Diagnosis & Disease Process Outcomes/Goals: Pt IDs own risk factors & lifestyle modifications by Session 10, Verbalizes symptoms of angina & response by session 3., Pt independently manages, Other Additional Outcomes/Goals: Plan/Interventions: Assist Pt to ID & engage in lifestyle modification to reduce CVD risk, Instruct on individual risk factors, Review symptoms of angina & emergency actions, Review secondary diagnosis & identify educational needs., Other see comment 30 day Reassessments:: Progressing 30 day Reassessments:: Progressing 30 day Reassessments:: Progressing 30 day Reassessments:: Progressing - Safety Referral to Physical Therapy: No Referral to [facility] Case Management: No Fall Risk Assessed:: Yes Assistive Devices:: None Exercise - 90-day Assessment - Visit Date of Eval: 10/26/19 Session #:: 28 Comments:: Pt was on hold for COVID 19 precaution. Pt is now resuming rehab. - Physician Prescribed Exercise Modalities: Treadmill, Airdyne, NuStep Frequency: 3x/week for 12 weeks [36 sessions] Intensity: 60-80% of age predicted maximum heart rate reserve Current METSs:: 6 Target Heart Rate:: 101-132 Current RPE:: 12-13 Maximum Excercise HR:: 144 Resting Blood Pressure: 128/76 Maximum Exercise Blood Pressure: 128/78 EKG Type: NSR - Outcomes & Goals Goals:: Verbalizes understanding of THR, RPE & goal METS by session 6, Documents in home exercise log/reports 30 min aerobic 5 day/wk by DC, Demonstrates accurate pulse taking by DC, Other additional outcome/goals: see below - Intervention & Plan Exercise Program Goals: Instruct on personal THR & RPE, Instruct on MET level & personal MET goal, Show patient to take own pulse /validate performance until accurate, Instruct on home exercise, Other additional plan/int - 30-day Reassessments 30 day Reassessments:: Progressing - Physical Activity Home Exercise Physical Activity - Home Exercise: Safe Exercise, Warm-up, Self-monitoring, Cool-Down, Home Exercise > 30 min Daily, Sitting Time <3 hours/daily - Outcomes & Goals Outcomes/Goals: Demonstrates correct Warm-up/exercise Cool-Down (S3) if = 2.5 METs, Verbalizes symptoms of exercise intolerance by Session 3 (S3), Demonstrate safe equipment use (S3) & follows exercise prescrition (6), Other: See below - Intervention & Plan Plan/Intervention: Instruct warm-up & cool-down if exercising at > 2 METs, Instruct on symptoms of exercise intolerance & actions to take, Instruct & monitor on saf, Assess intial functional capacity & safety risk, Other See below - 30-day Reassessments 30 day Reassessments:: Progressing Nutrition - 90-Day Assessment - Program Goals Nutrition Program Goals: LDL <100 optimal. 100 - 129 Near optimal. 130 - 159 Borderline High. 160 - 189 High. Total Cholesterol <200 desirable. 200 - 239 Borderline High. >/= 240 High. HDL < 40 Low >/=60 High. Triglycerides <150 desirable. <199 optimal. VlDL 5 - 40. HgbA1C <7%. BMI <25 - Visit Date of Assessment:: 10/26/19 Session #:: 28 - Cholesterol/Lipids Determine presence & major risk factors that modify LDL goal: Cigarette smoking, Hypertension or hypertensive medication, Low HDL cholesterol <40 mg/dL*, Family history of premature CHD in Male < 55 years: female <65 yearsFa, Age men > 45 years; women >/= 55 years Outcomes/Goals: Pt IDs own risk factors & lifestyle modifications by Session 10, Verbalizes symptoms of angina & response by session 3., Pt independently manages, Other Additional Outcomes/Goals: Referral to dietitian:: No 30-day Reassessments:: Progressing - Weight Mgt (Other Care) Height: 5 ft 6 in Weight:: 78.925 kg BMI: 28.0 Outcomes/Goals: Pt sets, maintains & shows weight loss goal & trend during rehab, Other additional outcomes/goals Intervention/Plan: Instruct on ideal BMI & set weight loss goal w/patient, Assist pt to ID & incorporate diet changes for weight loss by S9, Refer to Structured Weight Loss program as appropriate, Encourage goal of using 250-300dcal per session for weight loss, Other additional plan/interventions 30 day Reassessments:: Progressing - Healthy Eating Habits Will attend diet classes:: Yes Outcomes/Goals:: Consume diet rich in vegs,fruits,whole grain/high fiber,fish,lean meat, Limit sat/trans fats,cholesterol & added salts & sugars, Other additional outcome/goals: Intervention/Plan:: Assess current eating habits, Other Additional plan/interventions 30-day Reassessments:: Progressing - Education Gave educational materials for:: Signs & symptoms of hypoglycemia, Signs & symptoms of hyperglycemia, Relate diabetes to coronary artery disease, Healthy eating Medical- 90-Day Assessment - Visit Date of Eval: 10/26/19 Session #:: 28 - Medication Compliance Preventative Medication(s):: Aspirin, Ticagrelor/P2Y12 inhibitor, Statin/lipid, Beta apple H/O mental health issues: depression, anxiety, or addiction?: No Doesn?t believe in the benefits of treatment?: No Believes medications are unnecessary or harmful?: No Has a concern about medication side effects?: No Expresses concern over the cost of medications?: No Outcomes/Goals: Verbalizes medications,desired effect & common side effects @ DC, Pt self-reports following medication regimen, Keeps card in wallet w/medications listed by DC, Other additional outcome/goals: Interventions/plans: Instruct on medication effects & side effects, Review medication list w/patient every two weeks, Instruct importance of taking meds as ordered & assist problem solving, Other additional 30-day Reassessments:: Progressing - Tobacco Use Tobacco Use: Non-smoker - Hypertension Hypertension Diagnosis:: Hypertension ICD-10 I10 Resting Blood Pressure:: 128/76 [place] [employer] Hypertension Guidelines: [place] [employer] Hypertension Guidelines. Normal BP Less than 120/80. Elevated BP 120/80. Hypertension Stage 1: BP 130-139/80-89. Hypertesnion Stage 2: BP 140 or higher/90 or higher. Hypertension Crisis: BP higher than 180/120 Peak Exercise Blood Pressure:: 128/78 Outcomes/Goals: Able to verbalize/achieve optimal blood pressure <130/80, Incorporates diet changes & exercise for blood pressure control by DC, Other additional outcomes/goals Interventions/plan: Instruct on optimal blood pressure, hypertension & medications, Instruct on effects of sodium, alcohol, stress, exercise &hypertension, Other additional plan/interventions 30 day Reassessments:: Progressing - Tobacco Cessation Referral Smoking Cessation Referral:: No Individual Education/Counseling:: No Education Schedule Given:: Yes Psychosocial - 90-Day Assess - VIsit Date of Eval: 10/26/19 Session #:: 28 History of previous Mental disease:: No - Target Goals Target Goals: Assess presence or absence of depression. Using a valid screening tool, maximizes coping skills. Positive support system - Psychosocial Test Tool Used:: [employer] QOL Cardiac, PHQ-9 Questionnaire phq-9 Severity: Severity. 1-4 Minimal Depression. 5-9 Mild Depression. 10-14 Moderate Depression. 15-19 Moderately Sever Depression. 20-27 Severe Depression. Rule: - Referral to Behavioral Health PS - Interventions: Yes Attend Stress Management Classes, No Referral to Behavioral Health if PHQ-9 score >9:, No Referral to [facility], No Referral to Physician if PHQ-9 if score is 5-9: - Outcomes/Goals: See list Psychosocial Outcomes/Goals:: ID's personal stressors & 2 strategies to manage stress by discharge, Other Additional outcome/goals: - Intervention/Plan: See List Interventions/Plan:: Assess stressors,coping strategies & signs of derpression on admission, Instruct/assist pt to develop coping & personal stress Mgt strategies, Refer to Behavioral Health if appropriate, Refer to Physician if appropriate, Instruct patient to recognize signs & symptoms of depression, Instruct patient to recog, Other additional plan/intervention - 30-day Reassessments: 30 day Reassessments:: Progressing Patient Health Questionnaire 90-Day Re-eval Assessment 1. Little interest or pleasure in doing things: Not at all 2. Feeling down, depressed, or hopeless: Not at all 3. Trouble falling or staying asleep, or sleeping too much: Not at all 4. Feeling tired or having little energy: Not at all 5. Poor appetite or overeating: Not at all 6. Feeling bad about yourself -- or that you are a failure or have let yourself or your family down: Not at all 7. Trouble concentrating on things, such as reading the newspaper or watching television: Not at all 8. Moving or speaking so slowly that other people could have noticed. Or the opposite - being so fidgety or restless that you have been moving around a lot more than usual: Not at all 9. Thoughts that you would be better off , or of hurting yourself in some way: Not at all How difficult have these problems made it for you to do your work, take care of things at home, or get along with other people?: Not difficult at all Total Score: 0 Self-Efficacy 90-Day Re-eval Assessment We would like to know how confident you are in doing certain activities. Please select your confidence level for:: Select your confidence level for the following using the scale 1-10 where 1 is not at all confident and 10 is totally confident. Your score is the average of all 6 responses. Fatigue: How confident are you that you can keep the fatigue caused by your disease from interfering with the things you want to do? Select Number: 10 Physical Discomfort or Pain: How confident are you that you can keep the physical discomfort or pain of your disease from interfering with the things you want to do? Select Number: 10 Emotional Distress: How confident are you that you can keep the emotional distress caused by your disease from interfering with the things you want to do? Select Number: 10 Other Symptoms or Health Problems: How confident are you that you can keep other symptoms or health problems from interfering with the things you want to do? Select Number: 10 Different Tasks and Activities: How confident are you that you can do the different tasks and activities needed to manage your health condition so as to reduce your need to see a doctor? Select Number: 10 Medication: How confident are you that you can do things other than just taking medication to reduce how much your illness affects your everyday life? Select Number: 10 Total Score:: 10
[2019-10-26 09:39] VITALS: BP 128/76; BP 128/78; BMI 28.0
== END 2019-11-25 23:59 ==
LOC: CR 06:29
PROVIDERS: PCP Family Medicine; Referring Provider Internal Medicine Cardiovascular Disease; Visit Provider Internal Medicine Cardiovascular Disease
DX: I25.10 Atherosclerotic heart disease of native coronary artery without angina pectoris (principal); I25.2 Old myocardial infarction; Z95.5 Presence of coronary angioplasty implant and graft
CPT/HCPCS: 93798

== ENCOUNTER → 2020-03-18 11:58 | Outpatient (CLI) | payer MEDICARE, OTHER, SELFPAY ==
[2019-10-26 09:39] VITALS: BMI 28.0
[2020-03-18 11:17] VITALS: BMI 28.2
[2020-03-18 12:28] LABS: Hematocrit 42.6 % (37-47); Hemoglobin 13.3 g/dL (12.0-15.0)
[2020-03-18 13:28] LABS: AST(SGOT) 41 U/L (15-37); Alanine Aminotransfer ALT/SGPT 57 U/L (13-56); Albumin, Serum 3.7 g/dL (3.2-5.0); Alkaline Phosphatase 112 U/L (45-117); Bilirubin, Direct 0.17 mg/dL (0.00-0.30); Cholesterol 119 mg/dL (200); Globulin 3.3 g/dL (2.2-4.2); High Density Lipoprotein 59 mg/dL; Thyroid Stim Hormone (TSH) 1.91 uIU/mL (0.358-3.74); Triglycerides 43 mg/dL; Very Low Density Lipoprotein 9 mg/dL (5-40)
== END ==
PROVIDERS: PCP Family Medicine; Referring Provider Physician Assistant Medical; Visit Provider Physician Assistant Medical
DX: E78.5 Hyperlipidemia, unspecified (principal); I25.10 Atherosclerotic heart disease of native coronary artery without angina pectoris; I25.2 Old myocardial infarction; R53.83 Other fatigue
CPT/HCPCS: 36415; 80061; 80076; 84443; 85014; 85018

== ENCOUNTER → 2020-09-23 09:55 | Outpatient (CLI) | payer MEDICARE, OTHER, SELFPAY ==
[2019-10-26 09:39] VITALS: BMI 28.0
[2020-09-23 09:08] VITALS: BMI 28.4
[2020-09-23 11:10] LABS: AST(SGOT) 38 U/L (15-37); Alanine Aminotransfer ALT/SGPT 56 U/L (13-56); Albumin, Serum 4.1 g/dL (3.2-5.0); Alkaline Phosphatase 105 U/L (45-117); Bilirubin, Direct 0.16 mg/dL (0.00-0.30); Cholesterol 168 mg/dL (200); Globulin 3.6 g/dL (2.2-4.2); High Density Lipoprotein 71 mg/dL; Protein, Total 7.7 g/dL (6.4-8.2); Triglycerides 53 mg/dL; Very Low Density Lipoprotein 11 mg/dL (5-40)
== END ==
PROVIDERS: PCP Family Medicine; Referring Provider Physician Assistant Medical; Visit Provider Physician Assistant Medical
DX: E78.00 Pure hypercholesterolemia, unspecified (principal); E78.5 Hyperlipidemia, unspecified
CPT/HCPCS: 36415; 80061; 80076

== ENCOUNTER → 2020-10-01 12:41 | Outpatient (CLI) | payer MEDICARE, OTHER, SELFPAY ==
[2019-10-26 09:39] VITALS: BMI 28.0
[2020-09-23 09:08] VITALS: BMI 28.4
--- NOTE | 2020-10-01 12:43 | ECHOD_ITS ---
Version 2 Reason For Study: CAD/ASHD Procedure This was a 2D Doppler, Color Flow transthoracic echocardiogram. Exam performed in department. Left Ventricle Normal LV size. The estimated ejection fraction is 55 %. Stage 1 diastolic dysfunction. Mild segmental systolic dysfunction (see wall motion). Mid-Inferior: Hypokinetic. Basal inferoseptal: Hypokinetic. Right Ventricle Normal RV size. Normal systolic function. Atria Normal left atrium. Normal right atrium. Mitral Valve Normal mitral valve. Mild (1+) eccentric mitral valve insufficiency. Tricuspid Valve Normal tricuspid valve. Mild tricuspid valve insufficiency. Pulmonary artery systolic pressure is 25 mmHg. Aortic Valve Normal aortic valve. Trisinus/trileaflet aortic valve. Pulmonic Valve Normal pulmonic valve. Mild (1+) pulmonic valve insufficiency. Great Vessels Normal aortic root. The pulmonary artery is normal size. Normal inferior vena cava. Pericardium/Pleural No pericardial effusion. MMode/2D Measurements & Calculations LVIDd: 4.7 cm IVSd: 0.97 cm Ao root diam: 3.3 cm LVIDs: 3.2 cm LVPWd: 0.95 cm RVDd: 3.5 cm FS: 31.9 % LAV(MOD-bp): 32.8 ml LVAd ap4: 29.0 cm2 SV(MOD-sp4): 47.5 ml LAV(MOD-bp) Indexed: 17.3 ml/m2 EDV(MOD-sp4): 91.1 ml LAV(MOD-sp2): 38.9 ml EDV(sp4-el): 94.5 ml LAV(MOD-sp4): 24.2 ml LVAs ap4: 17.9 cm2 ESV(MOD-sp4): 43.6 ml ESV(sp4-el): 44.5 ml EF(MOD-sp4): 52.1 % EF(sp4-el): 52.9 % SV(sp4-el): 49.9 ml LA A4 area: 11.5 cm2 LA dimension(2D): 3.2 cm RA A4 area: 11.3 cm2 Time Measurements MV dec time: 0.20 sec Doppler Measurements & Calculations MV E max александр: 73.0 cm/sec Lat Peak E' Александр: 5.1 cm/sec Med Peak E' Александр: 4.7 cm/sec MV A max алекасндр: 87.7 cm/sec E/E' lat: 14.4 E/E' med: 15.7 MV E/A: 0.83 Ao V2 max: 118.3 cm/sec LV V1 max: 98.5 cm/sec PA V2 max: 91.0 cm/sec Ao max P.6 mmHg LV V1 max P.9 mmHg TR max александр: 232.9 cm/sec TR max P.7 mmHg ECHO/Echo Complete Interpretation Summary Normal LV size. The estimated ejection fraction is 55 %. Stage 1 diastolic dysfunction. Pulmonary artery systolic pressure is 25 mmHg. Mild segmental systolic dysfunction (see wall motion). Mid-Inferior: Hypokinetic Basal inferoseptal: Hypokinetic Ordering Physician: Kyaw Cao Referring Physician: KHANH RAM Performed By: Julissa Leblanc RDCS
== END ==
LOC: CVS 12:43
PROVIDERS: PCP Family Medicine; Referring Provider Internal Medicine Cardiovascular Disease; Visit Provider Internal Medicine Cardiovascular Disease
DX: I25.10 Atherosclerotic heart disease of native coronary artery without angina pectoris (principal)
CPT/HCPCS: 93306

== ENCOUNTER → 2020-12-18 08:44 | Outpatient (CLI) | payer MEDICARE, OTHER, SELFPAY ==
[2019-10-26 09:39] VITALS: BMI 28.0
[2020-09-23 09:08] VITALS: BMI 28.4
--- NOTE | 2020-12-18 08:49 | BD_ITS ---
STUDY: DUAL ENERGY X-RAY ABSORPTIOMETRY / DXA REASON FOR EXAM: Female, 65 years old. Z780. The patient is postmenopausal. TECHNIQUE: Bone Mineral Density (BMD) measurements of lumbar spine and bilateral hips were obtained. COMPARISON: None. FINDINGS: Lumbar Spine (L1-L4): g/cm2 (1.041) / T-score (-1.1) / Z-score (0.6) Findings are suggestive of osteopenia with a low fracture risk. Left Femur Total: g/cm2 (0.941) / T-score (-0.5) / Z-score (0.8) Left Femoral Neck: g/cm2 (0.865) / T-score (-1.2) / Z-score (0.3) Right Femur Total: g/cm2 (0.911) / T-score (-0.8) / Z-score (0.6) Right Femoral Neck: g/cm2 (0.831) / T-score (-1.5) / Z-score (0.1) BD/Dexa Bone Density Study IMPRESSION: The patient is considered osteoporotic as outlined below according to World Jaren Organization (WHO) criteria with a low fracture risk. Reference Information: The T-score is the number of standard deviations above or below the standard which is normal for young adults at their peak bone mineral density. The World Health Organization (WHO) interprets the T-scores as follows: Above -1 Normal bone density Between -1 and -2.5 Osteopenia Equal to / or below -2.5 Osteoporosis As a practical clinical guideline, osteopenia may be graded as follows: Mild -1 through -1.5 Moderate -1.6 through -2.0 Severe -2.1 through -2.4 The Z-score is the number of standard deviations above or below age-matched controls. A Z-score of less than -1.5 would be considered abnormal. References: 1. NIH Osteoporosis and Related Bone Diseases www osteo.org 2. International Society for Clinical Densitometry www iscd.org 3. National Osteoporosis Foundation www nof.org Electronically Signed: Arsen Suazo MD at 15:49 EDT , Service support ,
== END ==
PROVIDERS: PCP Family Medicine; Referring Provider Family Medicine; Visit Provider Family Medicine
DX: Z00.00 Encounter for general adult medical examination without abnormal findings (principal); Z78.0 Asymptomatic menopausal state
CPT/HCPCS: 77080

== ENCOUNTER → 2021-03-26 14:42 | Outpatient (CLI) | payer MEDICARE, OTHER, SELFPAY ==
[2019-10-26 09:39] VITALS: BMI 28.0
--- NOTE | 2021-03-26 14:45 | RAD_ITS ---
STUDY: X-RAY - RIGHT KNEE REASON FOR EXAM: Female, 65 years old. Sprain. Twisting injury. TECHNIQUE: 4 view(s) of the knee. COMPARISON: None. FINDINGS: Normal visualized distal femur. Normal visualized proximal tibia and fibula. Normal proximal tibiofibular articulation. There is no acute fracture, dislocation or destructive osseous pathology. Normal medial femorotibial compartment. Normal lateral femorotibial compartment. 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 There is no demonstrated joint effusion. There appears to be soft tissue prominence over the anterior knee at the level of the patellar joint. RAD/Knee 4 or More Views IMPRESSION: 1. Patellofemoral joint arthrosis. 2. No acute fracture or dislocation. 3. Soft tissue swelling of the anterior knee. Electronically Signed: Ruddy Euceda DO at 17:02 EDT Tel [phone], Service support ,
== END ==
PROVIDERS: PCP Family Medicine; Referring Provider Family Medicine; Visit Provider Family Medicine
DX: S83.91XA Sprain of unspecified site of right knee, initial encounter (principal)
CPT/HCPCS: 73564

== ENCOUNTER → 2021-11-28 | Outpatient (CLI) | payer MEDICARE, OTHER, SELFPAY ==
[2019-10-26 09:39] VITALS: BMI 28.0
[2021-11-28 08:14] LABS: AST(SGOT) 27 U/L (15-37); Alanine Aminotransfer ALT/SGPT 35 U/L (13-56); Albumin, Serum 3.7 g/dL (3.2-5.0); Alkaline Phosphatase 96 U/L (45-117); Bilirubin, Direct 0.15 mg/dL (0.00-0.30); Cholesterol 141 mg/dL (200); Globulin 3.1 g/dL (2.2-4.2); High Density Lipoprotein 65 mg/dL; Protein, Total 6.8 g/dL (6.4-8.2); Triglycerides 44 mg/dL; Very Low Density Lipoprotein 9 mg/dL (5-40)
== END | disposition home or self-care (01) ==
LOC: LAB 07:44
PROVIDERS: PCP Family Medicine; Visit Provider Physician Assistant Medical
DX: E78.00 Pure hypercholesterolemia, unspecified (principal)
CPT/HCPCS: 36415; 80061; 80076

== ENCOUNTER → 2022-12-23 | Outpatient (CLI) | payer MEDICARE, OTHER, SELFPAY ==
[2019-10-26 09:39] VITALS: BMI 28.0
[2022-12-23 12:17] LABS: AST(SGOT) 45 U/L (15-37); Alanine Aminotransfer ALT/SGPT 41 U/L (13-56); Albumin, Serum 3.7 g/dL (3.2-5.0); Alkaline Phosphatase 101 U/L (45-117); Bilirubin, Direct 0.17 mg/dL (0.00-0.30); Cholesterol 129 mg/dL (200); Globulin 3.6 g/dL (2.2-4.2); High Density Lipoprotein 59 mg/dL; Protein, Total 7.3 g/dL (6.4-8.2); Triglycerides 50 mg/dL; Very Low Density Lipoprotein 10 mg/dL (5-40)
== END | disposition home or self-care (01) ==
LOC: LAB 10:30
PROVIDERS: PCP Family Medicine; Referring Provider Internal Medicine Cardiovascular Disease; Visit Provider Internal Medicine Cardiovascular Disease
DX: E78.00 Pure hypercholesterolemia, unspecified (principal)
CPT/HCPCS: 36415; 80061; 80076

== ENCOUNTER → 2023-01-24 | Outpatient (CLI) | payer MEDICARE, OTHER, SELFPAY ==
[2019-10-26 09:39] VITALS: BMI 28.0
[2023-01-24 10:21] LABS: Ionized Calcium 5.08 mg/dL (4.36-5.20)
[2023-01-24 10:37] LABS: Vitamin D,25 Hydroxy 33.4 ng/mL
[2023-01-24 10:43] LABS: Anion Gap 3 (5-15); BUN 10 mg/dL (7-18); BUN/Creat Ratio 14.9 RATIO (10-20); Calcium,Total 9.1 mg/dL (8.5-10.1); Chloride 108 mmol/L (98-107); Creatinine, Serum 0.67 mg/dL (0.55-1.02); EST Glomerular Filtration Rate 92 mL/min (>60); Est Glom Filt Rate - Afr Amer 112 mL/min (>60); Glucose 89 mg/dL (74-106); Magnesium 2.1 mg/dL (1.6-2.6); Phosphorus 3.3 mg/dL (2.5-4.9); Potassium 4.2 mmol/L (3.5-5.1); Sodium Level 140 mmol/L (136-145); Thyroid Stim Hormone (TSH) 3.64 uIU/mL (0.358-3.74)
[2023-01-24 10:44] LABS: Microalbumin,Random Urine < 5.0 mg/L (NO RANGE EST.)
[2023-01-24 13:06] LABS: PTHIN 35.8 pg/mL (18.4-80.1)
== END | disposition home or self-care (01) ==
LOC: MTLAB 07:43
PROVIDERS: PCP Family Medicine; Referring Provider Family Medicine; Visit Provider Family Medicine
DX: Z00.00 Encounter for general adult medical examination without abnormal findings (principal); Z13.29 Encounter for screening for other suspected endocrine disorder; I10 Essential (primary) hypertension; M85.80 Other specified disorders of bone density and structure, unspecified site; Z13.21 Encounter for screening for nutritional disorder
CPT/HCPCS: 36415; 80048; 82043; 82306; 82330; 83735; 83970; 84100; 84443

== ENCOUNTER → 2023-02-16 | Outpatient (CLI) | payer MEDICARE, OTHER, SELFPAY ==
[2019-10-26 09:39] VITALS: BMI 28.0
--- NOTE | 2023-02-16 08:29 | BD_ITS ---
STUDY: DUAL ENERGY X-RAY ABSORPTIOMETRY / DXA REASON FOR EXAM: Female, 67 years old. Z780 TECHNIQUE: Bone Mineral Density (BMD) measurements of lumbar spine and bilateral hips were obtained. COMPARISON: Comparison is made with prior study dated December 18, 2020. FINDINGS: Lumbar Spine (L1-L4): g/cm2 (0.891) / T-score (-1.2) / Z-score (0.9) Findings are suggestive of osteopenia with a low fracture risk. Left Femur Total: g/cm2 (0.907) / T-score (-0.3) / Z-score (1.2) Left Femoral Neck: g/cm2 (0.813) / T-score (-0.3) / Z-score (1.4) Right Femur Total: g/cm2 (0.894) / T-score (-0.4) / Z-score (1.1) Right Femoral Neck: g/cm2 (0.829) / T-score (-0.2) / Z-score (1.6) The T-Scores on the most recent prior examination were: Lumbar Spine (L1-L4): There has been worsening of bone density since the previous examination. Left Femur Total: which represents an improvement of 3.4%. Right Femur Total: which represents an improvement of 5.5%. BD/Dexa Bone Density Study IMPRESSION: The patient is considered osteopenic as outlined below according to World Jaren Organization (WHO) criteria with a low fracture risk. There has been improvement of bone density since the previous examination. Reference Information: The T-score is the number of standard deviations above or below the standard which is normal for young adults at their peak bone mineral density. The World Health Organization (WHO) interprets the T-scores as follows: Above -1 Normal bone density Between -1 and -2.5 Osteopenia Equal to / or below -2.5 Osteoporosis As a practical clinical guideline, osteopenia may be graded as follows: Mild -1 through -1.5 Moderate -1.6 through -2.0 Severe -2.1 through -2.4 The Z-score is the number of standard deviations above or below age-matched controls. A Z-score of less than -1.5 would be considered abnormal. References: 1. NIH Osteoporosis and Related Bone Diseases www osteo.org 2. International Society for Clinical Densitometry www iscd.org 3. National Osteoporosis Foundation www nof.org Electronically Signed: Arsen Suazo MD at 14:14 EDT ,
== END | disposition home or self-care (01) ==
LOC: OPBD 08:24
PROVIDERS: PCP Family Medicine; Referring Provider Family Medicine; Visit Provider Family Medicine
DX: Z00.00 Encounter for general adult medical examination without abnormal findings (principal); Z78.0 Asymptomatic menopausal state
CPT/HCPCS: 77080

== ENCOUNTER → 2025-03-26 | Outpatient (CLI) | payer MEDICARE, OTHER, SELFPAY ==
[2019-10-26 09:39] VITALS: BMI 28.0
[2025-03-26 11:44] LABS: AST(SGOT) 32 U/L (<=31); Alanine Aminotransfer ALT/SGPT 19 U/L (<=34); Albumin, Serum 4.1 g/dL (3.4-4.8); Alkaline Phosphatase 97 U/L (35-104); Bilirubin, Direct 0.17 mg/dL (0.00-0.30); Globulin 2.5 g/dL (2.2-4.2)
[2025-03-26 20:42] LABS: Cholesterol 162 mg/dL (<=200); Low Density Lipoprotein Calc. 82 mg/dL; Triglycerides 55 mg/dL; Very Low Density Lipoprotein 11 mg/dL (5-40); cholesterol:hdl ratio screen 2.36
== END | disposition home or self-care (01) ==
LOC: LAB 10:23
PROVIDERS: PCP Family Medicine; Referring Provider Internal Medicine Cardiovascular Disease; Visit Provider Internal Medicine Cardiovascular Disease
DX: E78.5 Hyperlipidemia, unspecified (principal); I10 Essential (primary) hypertension
CPT/HCPCS: 36415; 80061; 80076